=== PATIENT | female | born 1945 | race African-American/Black ===

== ENCOUNTER 2016-10-17 12:11 | Observation (INO) ==
--- NOTE | 2016-10-17 13:43 | Emergency Department Note ---
Arrival - Arrival Chief Complaint: Non-Specific Stated Complaint: sob, pain in legs and arm. ED Nursing Triage Note: C/O Having an asthma attack that started this am., states she is now cramping in her legs,thighs and hands., patient ambulated into triage without assistance, patient speaks with full sentences, states she has been wheezing earlier today Mode of Arrival: Ambulatory Limitations: No Limitations Source: Patient, Family (Daughter), RN Notes Reviewed Time Seen by Provider: 10/17/16 13:14 - History of Present Illness HPI Narrative: 71-year-old -Armenian female complains of generalized muscle cramps that started on today after taking nebulizer treatment. Reports fever (on last p.m.) , shortness of breath, chest pain with inspiration, palpitations, nausea, and epigastric pain that started today. Past medical history significant for asthma, COPD, type 2 diabetes, hypertension , anxiety and depression Medications: Advair, metformin, ProAir, Singulair, Spiriva, [place], losartan, omeprazole, theophylline Primary care provider Dr. Loera Allergies/Adverse Reactions: Allergies Allergy/AdvReac Type Severity Reaction Status Date / Time No Known Allergies Allergy Verified 10/17/16 12:30 Home Medications: Home Medications Medication Instructions Recorded Confirmed Type Albuterol Sulfate [Proair HFA] 1 puff INH QID 01/20/16 10/17/16 History Aspirin [Ecotrin] 81 mg PO DAILY 01/20/16 History Escitalopram [Lexapro] 20 mg PO DAILY 01/20/16 10/17/16 History Fluticasone 50 Mcg Nasal [place] 1 spray BOTH NARES TID 01/20/16 History [Flonase Nasal [place]] Fluticasone/Salmeterol 250-50 1 puff INH DAILY 01/20/16 10/17/16 History [Advair 250-50] HYDROcodone/ACETAMIN 10-325 [[place] 1 tablet PO Q6H 01/20/16 10/17/16 History 10-325] Losartan Potassium 100 mg PO DAILY 01/20/16 10/17/16 History Montelukast Tab [Singulair Tab] 10 mg PO DAILY 01/20/16 10/17/16 History Multivitamin [One Daily] 1 tablet PO DAILY 01/20/16 10/17/16 History Omeprazole 20 mg PO DAILY 01/20/16 10/17/16 History Theophylline Anhydrous [Theochron] 300 mg PO BID 01/20/16 10/17/16 History metFORMIN [Glucophage] 500 mg PO DAILY 01/20/16 10/17/16 History Insulin Detemir [Levemir FlexPen] 12 unit SUBCUT DAILY 10/17/16 History Tiotropium Inhalation [Spiriva 1 inhaler INH DAILY 10/17/16 10/17/16 History Handihaler] Tramadol HCl [Tramadol Tab] 50 mg PO BID PRN 10/17/16 10/17/16 History amLODIPine [Norvasc] 5 mg PO DAILY 10/17/16 10/17/16 History Review of System - Review of System 12 point system: reviewed and no additional remarkable complaints except as stated - Review of System Constitutional: Present: as per HPI, fever (Tactile last p.m.) Respiratory: Present: as per HPI, wheezing, other (Shortness of breath) Cardiovascular: Present: as per HPI, chest pain (With inspiration), palpitations Gastrointestinal: Present: as per HPI, abdominal pain (Epigastric), nausea. Absent: vomiting, diarrhea Musculoskeletal: Present: as per HPI, arm pain (Cramps), leg pain (Cramps) Neurological: Present: as per HPI, paresthesias (Bilateral upper and lower extremities) Medical,Surgical,& Family Hx - Medical History Cardio: History of: Hypertension Endocrine: History of: Diabetes Mellitus (NIDDM) Respiratory: History of: Asthma, COPD - Social History Smoking Status: Never smoker Frequency of Alcohol Use: Occasionally Type of Drug Use: None Exam Physical Examination: - General General appearance: alert, in no apparent distress - Head Head exam: Present: atraumatic, normocephalic, normal inspection - Eye Eye exam: Present: normal appearance - Neck Neck exam: Present: normal inspection Absent: tenderness, lymphadenopathy - Chest Chest inspection: Present: symmetric chest wall rise - Respiratory Respiratory exam: Present: Bilateral breath sounds diminished in bases - Cardiovascular Cardiovascular exam: Present: Tachycardia normal rhythm, normal heart sounds - Abdominal Exam Abdominal exam: Present: soft, normal bowel sounds. Absent: tenderness - Extremities Exam Extremities exam: Present: normal inspection, normal capillary refill absent: Tenderness to palpation Back Exam: Back Exam: Inspection normal - Neurological Exam Neurological exam: Present: alert, oriented person and place, CN II-XII intact, normal gait, motor sensory deficit, reflexes normal - Psychiatric Psychiatric exam: Present: normal affect, normal mood - Skin Skin exam: Present: warm, dry, intact Vital Signs: Vital Signs Temperature 98.0 F 10/17/16 12:55 Pulse Rate 98 H 10/17/16 16:25 Respiratory Rate 18 10/17/16 16:25 Blood Pressure 134/90 10/17/16 16:25 O2 Sat by Pulse Oximetry 96 10/17/16 12:27 Course - Reevaluation(s) Reevaluation #1: Patient is stable at this time. EKG shows tachycardia with runs of PVCs which makes it difficult to rule out any ST elevation at this time. Will give labetalol and follow-up with another EKG. Time: 14:10 Reevaluation #2: Dr. Dominguez hospitalist here to see patient. EKG shows sinus rhythm with PVCs. Patient is stable and comfortable at this time. Patient will be admitted to his services Time: 16:20 - Consultations Consultation #1: Shannon nurse practitioner with the hospitalist group notified and discussed case with her. Lab work essentially all normal. EKG shows sinus tachycardia with PVCs. Given patient history, age, and risk factors I believe that admission for observation is not unreasonable at this time. Time: 14:25 Results - Labs CBC & BMP: 10/17/16 13:52 10/17/16 13:52 Lab Results: I have reviewed the patients labs Labs: Laboratory Tests 10/17/16 10/17/16 13:52 13:52 Total Creatine Kinase 134 CK-MB (CK-2) 1.3 Troponin I 0.015 Total Protein 7.3 Albumin 4.4 Globulin 2.9 Albumin/Globulin Ratio 1.5 - EKG EKG results: interpreted by ERMD - Impressions Chest x-ray: Impression: Chronic lung changes. The right hilum has become more prominent over several years. You may wish to obtain a CT of the chest to exclude adenopathy in this location. - Diagnostic Findings Procedure: Chest x-ray: report reviewed by me Disposition Clinical Impression: Chest pain Case discussed with: patient, patient's family Disposition: Still a Patient Condition: Guarded
--- NOTE | 2016-10-17 14:02 | XRay Report ---
2 view chest. Indication: Shortness of breath. Comparison: December 09, 2015. The heart is enlarged. There is calcific plaque present within the aortic knob. There are extensive areas of abnormal stranding opacity and possible bullous disease present within the apices. There is persistent blunting of both costophrenic angles. The right hilum in particular is quite prominent but stable. Osseous structures are unremarkable. Impression: Chronic lung changes. The right hilum has become more prominent over several years. You may wish to obtain a CT of the chest to exclude adenopathy in this location. PROCEDURE INTERPRETED AT [facility] DEPARTMENT OF RADIOLOGY Final Report Signed by: Dr. Sofya Garcia
--- NOTE | 2016-10-17 14:03 | EKG Report ---
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
[2016-10-17 14:17] LABS: Basophils # 0.1 10*3/uL (0.0-0.2); Basophils % 0.7 % (0.0-0.8); Eosinophils # 0.2 10*3/uL (0.0-0.87); Eosinophils % 2.7 % (0.00-10.9); Hematocrit 42.6 VOL% (35.7-47.0); Hemoglobin 14.6 GM/DL (12.0-16.0); Immature Granulocytes % 0.3 %; Immature Granulocytes Absolute 0.03 #; Lymphocytes # 1.6 10*3/uL (1.4-4.0); Lymphocytes % 18.4 % (21.3-54.2); Mean Corpuscular HGB Conc 34.3 GM/DL (32-36); Mean Corpuscular Hemoglobin 31 PG (27-34); Mean Corpuscular Volume 90.4 FL (87-102); Mean Platelet Volume 11.1 FL (9.6-12.0); Monocytes # 0.7 10*3/uL (0.11-0.8); Monocytes % 8.6 % (1.7-12.7); Neutrophils % 69.3 % (38.7-73.9); Platelet Count 243 T/CUMM (130-400); Red Blood Count 4.71 MC/CUMM (3.8-5.5); Red Cell Distribution Width 14.1 % (9.3-17.3); White Blood Count 8.6 T/CUMM (4-12)
[2016-10-17] MEDS ORDERED: LABETALOL 20 MG/4 ML SYRINGE IV STA (14:22)
[2016-10-17 14:34] LABS: Albumin 4.4 G/DL (3.4-5.0); Calcium 10.2 MG/DL (8.5-10.1); Osmolality,Calculated 283.1 MOS/KG (273-304); Total Protein 7.3 G/DL (6.4-8.3)
[2016-10-17 14:35] LABS: Troponin I Only 0.015 NG/ML (0.00-0.045)
[2016-10-17] MEDS ORDERED: LABETALOL 100 MG/20 ML VIAL IV ONE (14:48)
--- NOTE | 2016-10-17 16:12 | Hospitalist History & Physical ---
Assessment and Plan (1) Asthma dependent on inhaled steroids Status: Acute Assessment and plan: The patient appears to have exacerbation of asthma. She will be treated with beta agonist nebulized breathing therapy, antibiotic, and steroid. Current Visit: Yes (2) Chronic pain of both knees Status: Acute Assessment and plan: The patient takes both [place] and tramadol for pain. I examined the prescription monitoring program and she receives her medicine from one physician and uses one pharmacy. She refills prescriptions on the of each month. Current Visit: Yes (3) Chest pain Status: Acute Assessment and plan: The patient has chest pain symptoms and abnormal EKG. We will obtain cardiology consultation and recheck cardiac enzymes, EKG, and chest x-ray in the morning. Current Visit: Yes Qualifiers: Chest pain type: pleurodynia Qualified Code(s): R07.81 - Pleurodynia History of Present Illness Chief complaint: Shortness of breath and chest discomfort History of present illness: Ms. Souza is a 71 year old female patient of Dr. Loera. The patient comes to the hospital today complaining of shortness of breath and wheezing. When taking beta agonist nebulizer therapy the patient has some palpitation and chest discomfort. EKG shows incomplete left bundle branch block. The patient' s symptom is moderate, continuous, and not improving. The patient's symptom is not associated with fever, chills, increased sputum production. The patient takes [place] and tramadol for pain. Home Medications Medication Instructions Recorded Confirmed Type Albuterol Sulfate [Proair HFA] 1 puff INH QID 01/20/16 10/17/16 History Aspirin [Ecotrin] 81 mg PO DAILY 01/20/16 History Escitalopram [Lexapro] 20 mg PO DAILY 01/20/16 10/17/16 History Fluticasone 50 Mcg Nasal [place] 1 spray BOTH NARES TID 01/20/16 History [Flonase Nasal [place]] Fluticasone/Salmeterol 250-50 1 puff INH DAILY 01/20/16 10/17/16 History [Advair 250-50] HYDROcodone/ACETAMIN 10-325 [[place] 1 tablet PO Q6H 01/20/16 10/17/16 History 10-325] Losartan Potassium 100 mg PO DAILY 01/20/16 10/17/16 History Montelukast Tab [Singulair Tab] 10 mg PO DAILY 01/20/16 10/17/16 History Multivitamin [One Daily] 1 tablet PO DAILY 01/20/16 10/17/16 History Omeprazole 20 mg PO DAILY 01/20/16 10/17/16 History Theophylline Anhydrous [Theochron] 300 mg PO BID 01/20/16 10/17/16 History metFORMIN [Glucophage] 500 mg PO DAILY 01/20/16 10/17/16 History Insulin Detemir [Levemir FlexPen] 12 unit SUBCUT DAILY 10/17/16 History Tiotropium Inhalation [Spiriva 1 inhaler INH DAILY 10/17/16 10/17/16 History Handihaler] Tramadol HCl [Tramadol Tab] 50 mg PO BID PRN 10/17/16 10/17/16 History amLODIPine [Norvasc] 5 mg PO DAILY 10/17/16 10/17/16 History Allergies Allergy/AdvReac Type Severity Reaction Status Date / Time No Known Allergies Allergy Verified 10/17/16 12:30 Medical,Surgical,& Family Hx - Medical History Cardio: History of: Hypertension Endocrine: History of: Diabetes Mellitus (NIDDM) Respiratory: History of: Asthma, COPD - Family History Family History: Reports;: Family Hypertension - Social History Smoking Status: Never smoker Frequency of Alcohol Use: Occasionally Type of Drug Use: None Marital Status: Lives With:: Alone Functional capacity: independent ambulation 12 point system: reviewed and no additional remarkable complaints except as stated Exam - Constitutional Vitals: Period Temp Pulse Resp BP Sys/Castillo Pulse Ox Last 24 Hr 98.0 F-98.0 F 102-102 20-20 144-144/92-92 96 Exam: Constitutional System: Mild distress on account of shortness of breath. No tremulousness. Head: Normocephalic, atraumatic. Ears, Nose and Throat System: No evidence of Otitis or Mastoiditis. No epistaxis or discharge Eyes System: Pupils equal, round, and reactive. Extraocular muscles intact. Neck: Supple, without adenopathy, No jugular venous distention. No thyromegaly , neck mass, or prior surgery apparent. Respiratory System: Chest moderate air trapping and moderate wheezing to auscultation. Cardiovascular System: Heart with regular rate and rhythm. No murmur. GI System: Abdomen soft, nontender. Normo active bowel sounds present. Musculoskeletal System: limbs with no pedal edema. Full distal pulses. Neurological System: No discernable sensory deficit. No aphasia Psychiatric System: Conversation is rational Results - Labs CBC & BMP: 10/17/16 13:52 10/17/16 13:52 Lab Results: I have reviewed the past 24 hour labs - EKG EKG results: sinus rhythm
[2016-10-17] MEDS ORDERED: traMADol 50 MG TABLET PO PRN (17:28)
[2016-10-17] MEDS ORDERED: ONDANSETRON 4 MG/2 ML VIAL IV PRN (17:28)
[2016-10-17] MEDS: LEVOFLOXACIN 500 MG TABLET PO SCH (18:58)
[2016-10-17] MEDS: methylPREDNISolone SOD SUC 40 MG/1 ML VIAL IV SCH (18:58)
[2016-10-17] MEDS: ENOXAPARIN 40 MG/0.4 ML SYRINGE SUBCUT SCH (18:58)
[2016-10-17] MEDS: SODIUM CHLORIDE 0.9% 1,000 ML IV SCH (19:04)
[2016-10-17] MEDS: ALBUTEROL/IPRATROPIUM 3 ML NEB RESP TX SCH (20:02)
[2016-10-17] MEDS: ALBUTEROL 2.5 MG/3 ML NEB RESP TX SCH (20:02)
[2016-10-17] MEDS: FLUTICASONE 50 MCG NASAL SPRAY 16 GM BOTTLE BOTH NARES SCH (21:14)
[2016-10-17] MEDS: THEOPHYLLINE ER 300 MG TABLET PO SCH (21:15)
[2016-10-18] MEDS: ALBUTEROL/IPRATROPIUM 3 ML NEB RESP TX SCH ×4 (01:15→20:05)
[2016-10-18 04:58] LABS: Basophils % 0.2 % (0.0-0.8); Hemoglobin 12.1 GM/DL (12.0-16.0); Immature Granulocytes % 0.4 %; Immature Granulocytes Absolute 0.02 #; Lymphocytes # 0.5 10*3/uL (1.4-4.0); Lymphocytes % 9.7 % (21.3-54.2); Mean Corpuscular HGB Conc 33.6 GM/DL (32-36); Mean Corpuscular Hemoglobin 31 PG (27-34); Mean Corpuscular Volume 90.9 FL (87-102); Mean Platelet Volume 11.8 FL (9.6-12.0); Monocytes # 0.1 10*3/uL (0.11-0.8); Monocytes % 1.6 % (1.7-12.7); Neutrophils # 4.4 10*3/uL (1.4-7.4); Neutrophils % 88.1 % (38.7-73.9); Platelet Count 222 T/CUMM (130-400); Red Blood Count 3.96 MC/CUMM (3.8-5.5); Red Cell Distribution Width 14.1 % (9.3-17.3)
[2016-10-18 05:20] LABS: Blood Urea Nitrogen 23 MG/DL (7-18); Calcium 9.9 MG/DL (8.5-10.1); Glucose 234 MG/DL (74-106); Magnesium 1.9 MG/DL (1.8-2.4); Osmolality,Calculated 288.5 MOS/KG (273-304); Sodium 139 MMOL/L (136-145); Troponin I Only < 0.015 NG/ML (0.00-0.045)
[2016-10-18] MEDS: methylPREDNISolone SOD SUC 40 MG/1 ML VIAL IV SCH ×2 (06:07→17:25)
--- NOTE | 2016-10-18 06:21 | Pain Management Consult Note ---
Assessment and Plan (1) Chronic pain of both knees Status: Acute Assessment and plan: continue current medications for pain , will obtain knee xrays Current Visit: Yes History of Present Illness Chief complaint: legs and knee pain History of present illness: Ms. Souza is a 71 year old female complaining of knee and leg pains and cramps, sees [facility] for norco as op Home Medications Medication Instructions Recorded Confirmed Type Albuterol Sulfate [Proair HFA] 1 puff INH QID 01/20/16 10/17/16 History Aspirin [Ecotrin] 81 mg PO DAILY 01/20/16 History Escitalopram [Lexapro] 20 mg PO DAILY 01/20/16 10/17/16 History Fluticasone 50 Mcg Nasal [place] 1 spray BOTH NARES TID 01/20/16 History [Flonase Nasal [place]] Fluticasone/Salmeterol 250-50 1 puff INH DAILY 01/20/16 10/17/16 History [Advair 250-50] HYDROcodone/ACETAMIN 10-325 [[place] 1 tablet PO Q6H 01/20/16 10/17/16 History 10-325] Losartan Potassium 100 mg PO DAILY 01/20/16 10/17/16 History Montelukast Tab [Singulair Tab] 10 mg PO DAILY 01/20/16 10/17/16 History Multivitamin [One Daily] 1 tablet PO DAILY 01/20/16 10/17/16 History Omeprazole 20 mg PO DAILY 01/20/16 10/17/16 History Theophylline Anhydrous [Theochron] 300 mg PO BID 01/20/16 10/17/16 History metFORMIN [Glucophage] 500 mg PO DAILY 01/20/16 10/17/16 History Insulin Detemir [Levemir FlexPen] 12 unit SUBCUT DAILY 10/17/16 History Tiotropium Inhalation [Spiriva 1 inhaler INH DAILY 10/17/16 10/17/16 History Handihaler] Tramadol HCl [Tramadol Tab] 50 mg PO BID PRN 10/17/16 10/17/16 History amLODIPine [Norvasc] 5 mg PO DAILY 10/17/16 10/17/16 History Allergies Allergy/AdvReac Type Severity Reaction Status Date / Time No Known Allergies Allergy Verified 10/17/16 12:30 Medical,Surgical,& Family Hx - Medical History Cardio: History of: Hypertension Neurology: History of: Migraine Endocrine: History of: Diabetes Mellitus (NIDDM) Respiratory: History of: Asthma, COPD Gastrointestinal: History of: GERD - Surgical History Abdominal Surgeries: Surgical HX of: EGD Reproductive Surgeries: Surgical HX of;: Gynecologic Surgery, Hysterectomy - Family History Family History: Reports;: Family Hypertension - Social History Smoking Status: Never smoker Frequency of Alcohol Use: Occasionally Type of Drug Use: None 12 point system: reviewed and no additional remarkable complaints except as stated - Constitutional Constitutional: Present: as per HPI - EENT Nose, mouth and throat: Present: as per HPI - Cardiovascular Cardiovascular: Present: dyspnea on exertion - Respiratory Respiratory: Present: dyspnea - Gastrointestinal Gastrointestinal: Present: as per HPI - Genitourinary Genitourinary: Present: as per HPI - Musculoskeletal Musculoskeletal: Present: abnormal gait, arthralgias, back pain, joint swelling , muscle cramps, muscle weakness - Neurological Neurological: Present: abnormal gait - Endocrine Endocrine: Present: fatigue Exam - Constitutional Vitals: Period Temp Pulse Resp BP Sys/[place] Pulse Ox Last 24 Hr 98.0 F-98.4 F 79-102 16-20 111-146/59-94 89-98 General appearance: mild distress - Head Head exam: Present: normal inspection - Eye Eye exam: Present: EOMI Pupils: Present: JIM - ENT ENT exam: Present: normal exam Ear exam: Present: intact Mouth exam: Present: normal external inspection - Neck Neck exam: Present: normal inspection - Respiratory Respiratory exam: Present: clear to auscultation bilaterally - Cardiovascular Cardiovascular exam: Present: RRR - GI/Abdominal GI/Abdominal exam: Present: normal bowel sounds - Extremities Exam Extremities exam: Present: other (bilateral knee tenderness) - Back Exam Back exam: Present: vertebral tenderness - Neurological Exam Neurological exam: Present: abnormal gait. Absent: altered - Skin Skin exam: Present: normal color Results - Labs CBC & BMP: 10/18/16 03:56 10/18/16 03:56 Lab Results: I have reviewed the past 24 hour labs
[2016-10-18] MEDS: SODIUM CHLORIDE 0.9% 1,000 ML IV SCH (07:07)
--- NOTE | 2016-10-18 07:55 | EKG Report ---
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
--- NOTE | 2016-10-18 08:30 | XRay Report ---
XR knee 2V BI Indication: Knee pain, osteoarthritis Comparison: None available Findings: No evidence of fracture seen. The alignment of the joints appears normal. Moderate medial compartment and mild to moderate remaining compartment degenerative change is present. Meniscal calcification is present more prominent in the lateral compartments. No soft tissue abnormality is seen. Impression: Knee osteoarthrosis as described above. PROCEDURE INTERPRETED AT [facility] DEPARTMENT OF RADIOLOGY Final Report Signed by: Dr. Casey Feliciano
--- NOTE | 2016-10-18 08:32 | XRay Report ---
XR chest 2V Indication: Dyspnea Comparison: 17 October 2016 Findings: The heart and mediastinum are normal in size and configuration. The pulmonary vascularity is normal in caliber. Lung volumes are increased with prominent bronchial markings. Pulmonary scarring is present more prominent in the upper lobes, similar to previous exam. No lung infiltrates, effusions, pneumothorax or other abnormality is demonstrated. Impression: Chronic lung changes. No acute process or significant change. PROCEDURE INTERPRETED AT [facility] DEPARTMENT OF RADIOLOGY Final Report Signed by: Dr. Casey Feliciano
[2016-10-18] MEDS: IPRATROPIUM 500 MCG/2.5 ML NEB RESP TX SCH ×4 (08:43→20:05)
[2016-10-18] MEDS: ALBUTEROL 2.5 MG/3 ML NEB RESP TX SCH ×4 (08:44→20:05)
--- NOTE | 2016-10-18 08:47 | EKG Report ---
Stationary ECG Study [facility] Test Date: 10/17/2016 4:16:26 PM Pat Name: JESUS LIN Department: Room: 283 Gender: F Billing Clerk: LUCILA : 1945 Requested by: Ashely Duncan Order Number: [id number] Reading MD: BARB BURDEN Intervals [place] Rate: 92 P: 86 [place]: 124 QRS: 106 QRSD: 158 T: -25 QT: 423 QTc: 472 Interpretive Statements SINUS RHYTHM WITH OCCASIONAL VENTRICULAR PREMATURE COMPLEXES POSSIBLE LEFT ATRIAL ENLARGEMENT MARKED RIGHT AXIS DEVIATION INTRAVENTRICULAR CONDUCTION DELAY Electronically Signed On 10-18-16 14:00:29 CDT by BARB BURDEN [id number]
[2016-10-18] MEDS: LOSARTAN 50 MG TABLET PO SCH (10:27)
[2016-10-18] MEDS: THEOPHYLLINE ER 300 MG TABLET PO SCH ×2 (10:28→21:09)
[2016-10-18] MEDS: ASPIRIN EC 81 MG TABLET PO SCH (10:28)
[2016-10-18] MEDS: amLODIPine 5 MG TABLET PO SCH (10:28)
[2016-10-18] MEDS: metFORMIN 500 MG TABLET PO SCH (10:28)
[2016-10-18] MEDS: LEVOFLOXACIN 500 MG TABLET PO SCH ×2 (10:29→19:23)
[2016-10-18] MEDS: ESCITALOPRAM 10 MG TABLET PO SCH (10:29)
[2016-10-18] MEDS: PANTOPRAZOLE 40 MG TABLET PO SCH (10:29)
[2016-10-18] MEDS: FLUTICASONE/SALMETEROL 250-50 DISKUS 14 DOSE INH SCH (10:35)
[2016-10-18] MEDS: FLUTICASONE 50 MCG NASAL SPRAY 16 GM BOTTLE BOTH NARES SCH ×3 (10:37→21:11)
--- NOTE | 2016-10-18 16:34 | Cardiology Consult Note ---
Josue Moreira Vanessa, RN, am scribing for, and in the presence of, Daryl Hairston MD 16 :28. Assessment and Plan - Time spent with patient Time spent with patient: Greater than 30 minutes (Due to assessment, planning, documentation, and medication review) (1) Chest pain Status: Acute Assessment and plan: 71 year old BF with PMHx HTN, DM, COPD, asthma, arthritis. Severe pulmonary HTN with PA pressure 76 mmHg. Chronic NICM and LBBB with most recent EF 20% now admitted with asthma exacerbation and chest discomfort. NYHA III. -CP, h/o Nonischemic cardiomyopathy and left bundle branch chronic, she had recently progressed CHF. Now has nocturnal dyspnea. Invasive evaluation was planned several months ago, but she did not show up. Discussed risks and benefits of management options. -Echo, stress test in a.m. -Continue ARB. -She has difficult to control asthma and was not on beta blockers. Uses inhalers frequently. His heart rate remains elevated, using a calcium channel katharine may be an option, although ejection fraction was severely depressed. -Severe pulmonary hypertension. Continue diuresis. 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 Current Visit: Yes Qualifiers: Chest pain type: pleurodynia Qualified Code(s): R07.81 - Pleurodynia (2) Chronic pain of both knees Status: Chronic Assessment and plan: SEE PLAN LISTED ABOVE. Current Visit: Yes (3) Nonischemic cardiomyopathy Status: Chronic Assessment and plan: SEE PLAN LISTED ABOVE. Current Visit: Yes (4) COPD (chronic obstructive pulmonary disease) Status: Chronic Assessment and plan: SEE PLAN LISTED ABOVE. Current Visit: Yes (5) GERD (gastroesophageal reflux disease) Status: Chronic Assessment and plan: SEE PLAN LISTED ABOVE. Current Visit: Yes (6) Hypertension Status: Chronic Assessment and plan: SEE PLAN LISTED ABOVE. Current Visit: Yes (7) Anxiety Status: Chronic Assessment and plan: SEE PLAN LISTED ABOVE. Current Visit: Yes (8) Asthma dependent on inhaled steroids Status: Chronic Assessment and plan: SEE PLAN LISTED ABOVE. Current Visit: Yes (9) Former tobacco use Status: Chronic Assessment and plan: SEE PLAN LISTED ABOVE. 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 MILLER Ms. Souza is a 71 year old black female with risk factors significant for: age , hypertension, diabetes, family history of premature CAD, and previous tobacco use. Past medical history includes COPD, asthma, arthritis. She also has a chronic left bundle branch block and known history of nonischemic cardiomyopathy with most recent EF 20% per echo December 2015. Left and right heart catheterization in July 2012 negative for significant coronary obstruction , severe pulmonary hypertension with evidence of biventricular failure, elevated right-sided filling pressures, and a NICM with EF 30%. Patient was experiencing no overt S/S of heart failure and has been medically optimized since that time. She was last seen by Dr. Miller in clinic in December 2015 after being referred by Dr. Arteaga for worsening shortness of breath with PND. Patient was set up for repeat diagnostic cardiac cath with probable AICD placement, but she did not present to hospital for procedure. Patient states, "I just got nervous and did not go." Patient presented to [facility] yesterday afternoon with complaints of shortness of breath and muscle cramping of legs, thighs, and right hand. She also reported having some chest pain on inspiration and had wheezing. Chest x- ray with chronic lung changes and right hilum becoming more prominent over the past several years. EKG with sinus tach at 102 bpm, LBBB. She did not have anginal complaint. She was admitted to [facility] telemetry for treatment of asthma exacerbation and evaluation of chest discomfort. Cardiology asked to see for chest discomfort. This morning, patient is awake and alert and is pleasant. Reports she feels much better today than she did yesterday. Patient' s daughter is present with her at bedside. Daughter reports that patient has been experiencing worsening in severity of shortness of breath since Monday morning, and patient has also PND which has worsened over the past couple months. She has also had worsening dyspnea on exertion. No further chest discomfort or pain this morning. Reports pain she experienced yesterday was under the left breast area and in epigastric area and described as a "pressure. " It waxed and waned throughout the day, and reports that discomfort was relieved by "pressing in" on the area. No radiation or associated dyspnea, diaphoresis, N/V, palpitations, presyncope. No recent cough, fever, chills. No signifcant LE edema, and patient reports she has occasional "light swelling" in her feet/ankles. Routinely uses 2 pillows to sleep at night and has not increased recently. Takes a routine PPI for reflux. No dysphagia or abdominal pain. No hemoptysis, hematuria, melena. BP 123/72. EKG and tele monitoring without acute ischemic finding. Serial cardiac biomarkers normal. Electrolytes within normal limit. Creatinine 1.1 (appears baseline). CC: Ashely Duncan MD - Home Medications and Allergies Home Medications: Home Medications Medication Instructions Recorded Confirmed Type Albuterol Sulfate [Proair HFA] 1 puff INH QID 01/20/16 10/17/16 History Aspirin [Ecotrin] 81 mg PO DAILY 01/20/16 History Escitalopram [Lexapro] 20 mg PO DAILY 01/20/16 10/17/16 History Fluticasone 50 Mcg Nasal [place] 1 spray BOTH NARES TID 01/20/16 History [Flonase Nasal [place]] Fluticasone/Salmeterol 250-50 1 puff INH DAILY 01/20/16 10/17/16 History [Advair 250-50] HYDROcodone/ACETAMIN 10-325 [[place] 1 tablet PO Q6H 01/20/16 10/17/16 History 10-325] Losartan Potassium 100 mg PO DAILY 01/20/16 10/17/16 History Montelukast Tab [Singulair Tab] 10 mg PO DAILY 01/20/16 10/17/16 History Multivitamin [One Daily] 1 tablet PO DAILY 01/20/16 10/17/16 History Omeprazole 20 mg PO DAILY 01/20/16 10/17/16 History Theophylline Anhydrous [Theochron] 300 mg PO BID 01/20/16 10/17/16 History metFORMIN [Glucophage] 500 mg PO DAILY 01/20/16 10/17/16 History Insulin Detemir [Levemir FlexPen] 12 unit SUBCUT DAILY 10/17/16 History Tiotropium Inhalation [Spiriva 1 inhaler INH DAILY 10/17/16 10/17/16 History Handihaler] Tramadol HCl [Tramadol Tab] 50 mg PO BID PRN 10/17/16 10/17/16 History amLODIPine [Norvasc] 5 mg PO DAILY 10/17/16 10/17/16 History Allergies/Adverse Reactions: Allergies Allergy/AdvReac Type Severity Reaction Status Date / Time No Known Allergies Allergy Verified 10/17/16 12:30 - Constitutional Constitutional: Present: fatigue. Absent: anorexia, chills - EENT Eyes: Absent: blurry vision Ears: Absent: decreased hearing Nose, mouth and throat: Absent: dysphagia, lip swelling, nasal congestion, neck pain, sinus pressure, sore throat, tongue swelling, vertigo - Cardiovascular Cardiovascular: Present: chest pain at rest, dyspnea, dyspnea on exertion, edema. Absent: chest pain with activity, radiating jaw, neck or arm pain, orthopnea (Trace) - Respiratory Respiratory: Present: dyspnea, wheezing, pain on inspiration. Absent: cough, hemoptysis, change in phlegm color - Gastrointestinal Gastrointestinal: Present: heartburn. Absent: abdominal pain, constipation, diarrhea, dysphagia, early satiety, hematemesis, hematochezia, melena, nausea, vomiting, jaundice - Genitourinary Genitourinary: Absent: dysuria, flank pain, hematuria - Musculoskeletal Musculoskeletal: Present: arthralgias, muscle cramps, myalgias - Neurological Neurological: Absent: abnormal gait, abnormal speech, confusion, dizziness, frequent falls, syncope, tremor(s) - Psychiatric Psychiatric: Present: anxiety. Absent: depression, panic attacks - Endocrine Endocrine: Present: cold intolerance, fatigue. Absent: heat intolerance - Hematologic/Lymphatic Hematologic/Lymphatic: Absent: easy bleeding, easy bruising Medical,Surgical,& Family Hx - Medical History Cardio: History of: CHF, Hypertension No history of: Cardiac Dysrhythmia, DE, Pacemaker, PVD, Valvular Heart Disease Psychological: History of: Anxiety Disorders Neurology: History of: Migraine Endocrine: History of: Diabetes Mellitus (NIDDM) No history of: Thyroid Disorder Respiratory: History of: Asthma, COPD, Pulmonary Hypertension No history of: Obstructive Sleep Apnea Genitourinary: No history of: Kidney Stones Gastrointestinal: History of: GERD No history of: Crohn's Disease, Gastrointestinal Bleed, Hematochezia, Hepatitis, Ulcerative Colitis Musculoskeletal: History of: Musculoskeletal Problems Hematology: No history of: Anemia, Blood Transfusion Reaction, Bleeding Problems, Clotting Problems Other: No history of: Cancer, HIV - Surgical History Cardiac Surgeries: Sugical HX of: Cardiac Catheterization Patient Denies: Cardiac Surgery, Carotid Endarterectomy, Internal Defibrillator Abdominal Surgeries: Surgical HX of: EGD Reproductive Surgeries: Surgical HX of;: Breast Surgery (Lumpectomy left breast) , Gynecologic Surgery, Hysterectomy Orthopedic Surgeries: Surgical HX of;: Orthopedic Surgery (Left knee arthroscopy ; meniscus removal) - Family History Family History: Reports;: Family Diabetes, Family Heart Disease (Father), Family Hypertension - Social History Smoking Status: Former smoker Frequency of Alcohol Use: Occasionally Type of Drug Use: None Marital Status: Lives With:: Alone Functional capacity: independent ambulation Physical Examination Vital Signs Temp Pulse Resp BP Pulse Ox 98.0 F 102 H 20 144/92 96 10/17/16 12:27 10/17/16 12:27 10/17/16 12:27 10/17/16 12:27 10/17/16 12:27 General: Present: Appears Well, No Apparent Distress HEENT: Present: Normocephaly Neck: Present: Supple Neck, No Bruit, Other (elev JVP) Cardiac: Present: Regular Rate, Systolic Murmur Lungs: Present: Decreased Breath Sounds, Wheezes, No Wheezes, No Rales, No Rhonchi Neuro: Present: Grossly Intact Abdomen: Present: Soft, Active Bowel Sounds Skin: Present: Clear. Absent: Suspicious Lesions Extremities: Present: No Clubbing, No Cyanosis, +1 Edema Result/EKG - Labs CBC & BMP: 10/18/16 03:56 10/18/16 03:56 Lab Results: I have reviewed the past 24 hour labs Labs: Laboratory Results - last 24 hr 10/17/16 10/17/16 10/17/16 13:52 13:52 13:52 WBC 8.6 RBC 4.71 Hgb 14.6 Hct 42.6 MCV 90.4 MCH 31 MCHC 34.3 RDW 14.1 Plt Count 243 MPV 11.1 Neut % (Auto) 69.3 Lymph % (Auto) 18.4 L [place] % (Auto) 8.6 Eos % (Auto) 2.7 Baso % (Auto) 0.7 Neut # (Auto) 6.0 Lymph # (Auto) 1.6 [place] # (Auto) 0.7 Eos # (Auto) 0.2 Baso # (Auto) 0.1 Immature Gran % 0.3 Nucleated RBC % 0.0 Immature Gran # 0.03 Nucleated RBCs # 0.00 Immature Plt Fraction 0.0 Sodium 142 Potassium 4.0 Chloride 105 Carbon Dioxide 28 Anion Gap 13.0 BUN 14 Creatinine 1.10 H GFR Calculation 62 BUN/Creatinine Ratio 12.00 Glucose 92 POC Glucose Calculated Osmolality 283.1 Calcium 10.2 H Magnesium Total Bilirubin 1.00 AST 19 ALT 23 Alkaline Phosphatase 87 Total Creatine Kinase 134 CK-MB (CK-2) 1.3 Troponin I 0.015 Total Protein 7.3 Albumin 4.4 Globulin 2.9 Albumin/Globulin Ratio 1.5 Theophylline 10/17/16 10/18/16 10/18/16 13:52 03:56 03:56 WBC 5.0 D RBC 3.96 Hgb 12.1 D Hct 36.0 MCV 90.9 MCH 31 MCHC 33.6 RDW 14.1 Plt Count 222 MPV 11.8 Neut % (Auto) 88.1 H Lymph % (Auto) 9.7 L [place] % (Auto) 1.6 L Eos % (Auto) 0.0 Baso % (Auto) 0.2 Neut # (Auto) 4.4 Lymph # (Auto) 0.5 L [place] # (Auto) 0.1 L Eos # (Auto) 0.0 Baso # (Auto) 0.0 Immature Gran % 0.4 Nucleated RBC % 0.0 Immature Gran # 0.02 Nucleated RBCs # 0.00 Immature Plt Fraction 0.0 Sodium 139 Potassium 4.0 Chloride 103 Carbon Dioxide 27 Anion Gap 13.0 BUN 23 H Creatinine 1.10 H GFR Calculation 62 BUN/Creatinine Ratio 20.00 Glucose 234 H POC Glucose Calculated Osmolality 288.5 Calcium 9.9 Magnesium 2.0 1.9 Total Bilirubin AST ALT Alkaline Phosphatase Total Creatine Kinase 88 D CK-MB (CK-2) Troponin I < 0.015 Total Protein Albumin Globulin Albumin/Globulin Ratio Theophylline 10/18/16 10/18/16 03:56 07:48 WBC RBC Hgb Hct MCV MCH MCHC RDW Plt Count MPV Neut % (Auto) Lymph % (Auto) [place] % (Auto) Eos % (Auto) Baso % (Auto) Neut # (Auto) Lymph # (Auto) [place] # (Auto) Eos # (Auto) Baso # (Auto) Immature Gran % Nucleated RBC % Immature Gran # Nucleated RBCs # Immature Plt Fraction Sodium Potassium Chloride Carbon Dioxide Anion Gap BUN Creatinine GFR Calculation BUN/Creatinine Ratio Glucose POC Glucose 205 H Calculated Osmolality Calcium Magnesium Total Bilirubin AST ALT Alkaline Phosphatase Total Creatine Kinase CK-MB (CK-2) Troponin I Total Protein Albumin Globulin Albumin/Globulin Ratio Theophylline 16.1 - Diagnostic Findings Procedure: Chest x-ray: report reviewed by me, image reviewed by me - EKG EKG results: interpreted by me, no acute changes EKG shows: sinus rhythm Specialty Discharge - Follow Up or Referrals Follow up with: Alexis Wylie MD [Physician] - (11/30 @ 115) Marika Moreira Attila, MD, personally performed the services described in this documentation, ascribed by Sapna Salas RN in my presence, and it is both accurate and complete 634 .
--- NOTE | 2016-10-18 16:51 | Hospitalist Progress Note ---
Assessment and Plan (1) Asthma dependent on inhaled steroids Status: Chronic Assessment and plan: continue steroids, antibiotics, nebs, O2. Her asthma flare is improving. To have stress test in am per Dr Hairston. Current Visit: Yes (2) Chronic pain of both knees Status: Chronic Current Visit: Yes (3) Nonischemic cardiomyopathy Status: Chronic Current Visit: Yes (4) Hypertension Status: Chronic Current Visit: Yes Hospitalist: Subjective Interval history: Mrs Souza is feeling much better today and would like to go home. I saw her this morning and she agreed to wait until assessed by Dr Hairston. He has seen her and plans stress test in am. No chest pain. Breathing more comfortably with nebs, steroids. Exam - Constitutional Vitals: Period Temp Pulse Resp BP Sys/[place]illo Pulse Ox Last 24 Hr 98.0 F-98.8 F 71-93 16-20 111-146/59-94 89-99 General appearance: no acute distress, over weight - Head Head exam: Present: normocephalic, atraumatic - Eye Eye exam: Present: EOMI. Absent: scleral icterus - Respiratory Respiratory exam: Present: clear to auscultation bilaterally. Absent: wheezes - Cardiovascular Cardiovascular exam: Present: regular rate and rhythm - GI/Abdominal GI/Abdominal exam: Present: normal bowel sounds, soft. Absent: tenderness - Extremities Exam Extremities exam: Absent: edema Results - Labs CBC & BMP: 10/18/16 03:56 10/18/16 03:56 Lab Results: I have reviewed the past 24 hour labs Specialty Discharge - Follow Up or Referrals Follow up with: Alexis Wylie MD [Physician] - (11/30 @ 115)
[2016-10-18] MEDS: ENOXAPARIN 40 MG/0.4 ML SYRINGE SUBCUT SCH (17:24)
[2016-10-18] MEDS: FUROSEMIDE 40 MG/4 ML VIAL IV SCH (17:25)
--- NOTE | 2016-10-18 18:02 | ECHO Report ---
Mendez Souza Exam Date: 10/18/2016 16:23 Referring Physician: Technologist: Sary Haney RDCS Age: 71 Ht (in): 65 Wt (lb): 162 Gender: F Exam [facility]: [facility] Echo Indications: Chest pain, unspecified, Essential (primary) hypertension, NIDDM, GERD, Cardiomyopathy, unspecified, Asthma, Dyspnea, unspecified, Left bundle-branch block, unspecified, COPD BP: 136 / 78 HR: 75 Rhythm: Sinus Technical Quality: IMPRESSIONS Mildly dilated left ventricle, with severe global hypokinesis, with abnormal septal motion. Estimated left ventricular ejection fraction 20%. No hypertrophy. Mild right atrial and moderate left atrial dilatation. Moderate eccentric mitral regurgitation. Mild aortic valve sclerosis, without stenosis or insufficiency. Moderate pulmonary hypertension, with moderate tricuspid regurgitation. MEASUREMENTS (Male / Female) Normal Values 2D ECHO LV Diastolic Diameter PLAX 5.9 cm 4.2 - 5.9 / 3.9 - 5.3 cm LV Systolic Diameter PLAX 5.3 cm LV Fractional Shortening PLAX 9.8 % IVS Diastolic Thickness 0.9 cm 0.6 - 1.0 / 0.6 - 0.9 cm LVPW Diastolic Thickness 0.9 cm 0.6 - 1.0 / 0.6 - 0.9 cm RV Internal Dim ED PLAX 3.9 cm Aortic Root Diameter 2.8 cm LA Systolic Diameter LX 3.7 cm 3.0 - 4.0 / 2.7 - 3.8 cm DOPPLER TR Peak Velocity 392.0 cm/s TR Peak Gradient 61.5 mmHg FINDINGS Left Ventricle Mildly dilated left ventricle, with severe global hypokinesis, with abnormal septal motion. Estimated left ventricular ejection fraction 20%. No hypertrophy. Right Ventricle The right ventricle is normal in size and function. Right Atrium The right atrium is mildly enlarged. Left Atrium The left atrium is moderately enlarged. Mitral Valve Morphologically normal mitral valve. Moderate eccentric mitral regurgitation. Aortic Valve Mildly sclerotic aortic valve, without significant stenosis or insufficiency. Tricuspid Valve Morphologically normal tricuspid valve. Moderate tricuspid valve regurgitation. Tricuspid regurgitation velocities suggest a PAP of 61 mmHg plus right atrial pressure. Pulmonic Valve Morphologically normal pulmonic valve. Trace pulmonary valve regurgitation. Pericardium Normal pericardium without effusion. Aorta Normal ascending aorta dimension. Daryl Hairston (Electronically Signed) Final Date: 18 October 2016 18:01
[2016-10-19] MEDS: ALBUTEROL/IPRATROPIUM 3 ML NEB RESP TX SCH ×6 (01:07→20:29)
--- NOTE | 2016-10-19 05:47 | Pain Management Progress Note ---
Assessment and Plan (1) Chronic pain of both knees Status: Chronic Assessment and plan: continue current medications for pain , will obtain knee xrays 10/19 I will make her a follow-up appointment with me in pain clinic and she can be discharged home per primary Current Visit: Yes Pain - Subjective Interval history: The patient is feeling much better is wanted to go home this morning. Patient is scheduled for a treadmill test this morning. X-rays of the knee show significant osteoarthritis changes. I will make her a follow-up appointment with me in pain clinic next week and I can possibly inject the knees at that time Exam - Constitutional Vitals: Period Temp Pulse Resp BP Sys/[place] Pulse Ox Last 24 Hr 97.1 F-99.4 F 58-104 16-20 122-138/60-78 89-100 General appearance: normal weight - Head Head exam: Present: normal inspection - Eye Eye exam: Present: EOMI Pupils: Present: JIM - ENT ENT exam: Present: normal exam Ear exam: Present: intact Mouth exam: Present: normal external inspection - Neck Neck exam: Present: normal inspection - Respiratory Respiratory exam: Present: clear to auscultation bilaterally - Cardiovascular Cardiovascular exam: Present: RRR - GI/Abdominal GI/Abdominal exam: Present: normal bowel sounds - Extremities Exam Extremities exam: Present: other (Both knees are tender) - Back Exam Back exam: Present: vertebral tenderness - Neurological Exam Neurological exam: Present: abnormal gait - Skin Skin exam: Present: normal color Results - Labs CBC & BMP: 10/18/16 03:56 10/18/16 03:56 Lab Results: I have reviewed the past 24 hour labs Specialty Discharge - Follow Up or Referrals Follow up with: Alexis Wylie MD [Physician] - (11/30 @ 115)
[2016-10-19] MEDS: methylPREDNISolone SOD SUC 40 MG/1 ML VIAL IV SCH ×2 (07:24→19:14)
[2016-10-19] MEDS: ALBUTEROL 2.5 MG/3 ML NEB RESP TX SCH (07:26)
[2016-10-19] MEDS: IPRATROPIUM 500 MCG/2.5 ML NEB RESP TX SCH (07:26)
[2016-10-19] MEDS: ESCITALOPRAM 10 MG TABLET PO SCH (09:59)
[2016-10-19] MEDS: ASPIRIN EC 81 MG TABLET PO SCH (10:00)
[2016-10-19] MEDS: PANTOPRAZOLE 40 MG TABLET PO SCH (10:00)
[2016-10-19] MEDS: THEOPHYLLINE ER 300 MG TABLET PO SCH ×2 (10:01→22:07)
[2016-10-19] MEDS: LOSARTAN 50 MG TABLET PO SCH (10:01)
[2016-10-19] MEDS: metFORMIN 500 MG TABLET PO SCH (10:01)
[2016-10-19] MEDS: FLUTICASONE 50 MCG NASAL SPRAY 16 GM BOTTLE BOTH NARES SCH ×3 (10:02→22:07)
[2016-10-19] MEDS: amLODIPine 5 MG TABLET PO SCH (10:02)
[2016-10-19] MEDS: FLUTICASONE/SALMETEROL 250-50 DISKUS 14 DOSE INH SCH (10:03)
[2016-10-19] MEDS: FUROSEMIDE 40 MG/4 ML VIAL IV SCH ×2 (10:04→16:12)
--- NOTE | 2016-10-19 10:43 | Discharge Summary ---
Hospital Course - Hospital Course Hospital Course: Mrs Souza presented with shortness of breath and asthma exacerbation. She was treated with steroids and antibiotics and nebs and her wheezing resolved. She was also found to have a previoiusly unknown cardiomyopathy. She was seen by Dr Hairston who ordered a stress test that had minimal abnormality which was followed by [facility] that showed clear coronaries. She has been diuresed and is feeling good and ready to go home. She will follow up with DR Miller and with her PCP DR Loera, her pain doctor Dr Coelho, and Dr Wylie. She will be on lasix. - Time spent with patient Time with patient DS: Greater than 30 minutes (discharge planning, care coordination, documentation, medicine reconciliation took 38 minutes.) Diagnosis - Discharge Diagnosis (1) Asthma dependent on inhaled steroids Status: Chronic (2) Chronic pain of both knees Status: Chronic (3) Nonischemic cardiomyopathy Status: Chronic (4) Hypertension Status: Chronic Specialty Discharge - Follow Up or Referrals Follow up with: Kimberli Coelho MD [Physician] - 10/28/16 7:45 am Alexis Wylie MD [Physician] - 11/30/16 1:15 pm (wed 11/30 @ 115) Ben Loera MD [Physician] - 10/28/16 11:15 am Abel Miller MD [Physician] - 11/18/16 9:15 am ([facility] ) Discharge Plan - Discharge Data Disposition: Disch To Home/Self Care Condition at Discharge: Stable Discharge Diet: heart healthy Activity: resume usual activities as tolerated - Discharge Medications New Fluticasone 50 Mcg Nasal [place] [Flonase Nasal [place]] 1 spray BOTH NARES TID spray Furosemide Tab [Lasix Tab] 40 mg PO BID DIURETIC #60 tablet predniSONE TAB [PredniSONE] 10 mg PO DAILY #20 tablet Potassium Chloride 20 meq PO BID #60 tablet.er Continue metFORMIN [Glucophage] 500 mg PO DAILY Theophylline Anhydrous [Theochron] 300 mg PO BID Omeprazole 20 mg PO DAILY Multivitamin [One Daily] 1 tablet PO DAILY Montelukast Tab [Singulair Tab] 10 mg PO DAILY Losartan Potassium 100 mg PO DAILY HYDROcodone/ACETAMIN 10-325 [[place] 10-325] 1 tablet PO Q6H Fluticasone/Salmeterol 250-50 [Advair 250-50] 1 puff INH DAILY Escitalopram [Lexapro] 20 mg PO DAILY Aspirin [Ecotrin] 81 mg PO DAILY Albuterol Sulfate [Proair HFA] 1 puff INH QID Tramadol HCl [Tramadol Tab] 50 mg PO BID PRN PRN Reason: Pain Tiotropium Inhalation [Spiriva Handihaler] 1 inhaler INH DAILY amLODIPine [Norvasc] 5 mg PO DAILY - Follow Up or Referral Follow Up: Kimberli Coelho MD [Physician] - 10/28/16 7:45 am Alexis Wylie MD [Physician] - 11/30/16 1:15 pm (11/30 @ 115) Ben Loera MD [Physician] - 10/28/16 11:15 am Abel Miller MD [Physician] - 11/18/16 9:15 am ([facility] ) - Forms/Instructions Instructions: Left Heart Catheterization (DC), Heart Healthy Diet (GEN) Exam - Constitutional Vitals: Period Temp Pulse Resp BP Sys/[place] Pulse Ox Last 24 Hr 97.1 F-99.4 F 58-104 16-20 112-138/60-78 89-100 General appearance: normal weight, no acute distress - Eye Eye exam: Present: EOMI. Absent: scleral icterus - Respiratory Respiratory exam: Present: clear to auscultation bilaterally. Absent: rales, wheezes - Cardiovascular Cardiovascular exam: Present: regular rate and rhythm - GI/Abdominal GI/Abdominal exam: Present: normal bowel sounds, soft. Absent: tenderness - Extremities Exam Extremities exam: Absent: edema Discharge Results Procedures and tests throughout hospitalization: Pending Orders 10/19/16 04:00 NM kashmir perf SPECT rest or str IN AM Labs on day of discharge: Labs from last 24 hours 10/19/16 10/18/16 07:43 19:03 POC Glucose 128 H 201 H DS: Provider Date of admission: 10/17/16 15:42 Primary care physician: . No PCP Attending physician on admission: Sanchez Dominguez MD Consults: 10/17/16 17:28 Consult to Physician [CONS] Routine Comment: chest pain Consulting Provider: Daryl Hairston Consult to Physician [CONS] Routine Comment: painful legs Consulting Provider: Kimberli Coelho Discharging clinician: Ashely Duncan MD
--- NOTE | 2016-10-19 10:46 | Event Note ---
Patient underwent Cardiolite stress testing this morning without complaints of chest pain, heaviness or tightness. No obvious ST changes noted, occasional unifocal PVC. Poor exercise tolerance. Reached target heart rate within approximately 90 seconds but continued to walk for a total of 3-1/2 minutes at a slower rate. Moderate dyspnea on exertion. Blood pressure responded appropriately. She is now being transitioned to nuclear medicine for final scan. Dr. Hairston to read, interpreted and advise.
[2016-10-19] MEDS ORDERED: MAGNESIUM SULF RIDER 2 GM in PREMIX 1 EACH IV PRN (15:17)
--- NOTE | 2016-10-19 15:45 | Nuclear Medicine Report ---
EXERCISE STRESS TEST Test interpreted and dictated by Dr. Daryl Hairston. INDICATION: CHF, left bundle branch block, history of cardiomyopathy. PROCEDURE: At rest, 10 mCi of 99-Technetium labeled Sestamibi was injected and rest images were obtained. The patient then exercised according to the Sanchez treadmill stress protocol. At peak stress, 30 mCi of 99-Technetium labeled Sestamibi was injected and post stress images were obtained. FINDINGS: At rest, heart rate 87 beats per minute, blood pressure 134/90, left bundle branch block with PVCs. The patient exercised for 1 minute and 58 seconds, achieving the peak stress of 3.2 METS, achieving a peak heart rate of 150 beats per minute, 100% of maximum, age predicted heart rate. The blood pressure did not change. Left bundle branch block, with frequent PVCs were noted. The test was stopped due to achieving the peak target heart rate, dyspnea on exertion and fatigue. There was no chest pain. Rest and post stress , gated and perfusion images were reviewed. The left ventricle is severely dilated, the end-diastolic volume is 224 cc, the end-systolic volume is 175 cc, and the calculated ejection fraction is 72%. The anteroseptal region is akinetic, the remaining segments are hypokinetic. There is a large area in the anterior/apical region of severely decreased activity at rest, which becomes moderately photopenic post stress. In addition, there is an area of moderately decreased activity in the basal anteroseptal segments, which does not change post stress. In addition, there is also an area of moderately decreased activity in the inferior/apical segments, which remains moderately photopenic post stress. This is consistent with old myocardial disease. Specificity is limited due to underlying left bundle branch block. CONCLUSIONS: 1. CLINICALLY NEGATIVE, ELECTRICALLY NONDIAGNOSTIC MAXIMUM TREADMILL STRESS TEST. POOR EXERCISE TOLERANCE. 2. SEVERELY DILATED LEFT VENTRICLE, WITH SEVERE SYSTOLIC DYSFUNCTION. EVIDENCE OF OLD MYOCARDIAL DISEASE WITHOUT REVERSIBLE ISCHEMIA, IN MULTIPLE AREAS, DESCRIBED ABOVE. SPECIFICITY IS LIMITED DUE TO UNDERLYING LEFT BUNDLE BRANCH BLOCK. 3. THIS IS A HIGH RISK STRESS FOR FUTURE CARDIOVASCULAR EVENTS. Procedure performed and interpreted at [facility] Department of Radiology. CC: VIVIAN
--- NOTE | 2016-10-19 16:28 | Cardiology Progress Note ---
Josue Moreira Vanessa, RN, am scribing for, and in the presence of, Daryl Hairston MD 16 :28. Assessment and Plan - Time spent with patient Time spent with patient: Greater than 30 minutes (1) Chest pain Status: Acute Assessment and plan: 71 year old BF with PMHx HTN, DM, COPD, asthma, arthritis. Severe pulmonary HTN with PA pressure 76 mmHg. Chronic NICM and LBBB with most recent EF 20% now admitted with asthma exacerbation and chest discomfort. -CP, h/o Nonischemic cardiomyopathy and left bundle branch chronic, she had recently progressed CHF. Now has nocturnal dyspnea. Invasive evaluation was planned several months ago, but she did not show up. Stress test today showed severe cardiomyopathy, with areas suggestive of old myocardial disease, with some focal findings that could represent either ischemia or just artifact due to left bundle branch block. We discussed risks and benefits of management options, we will obtain interventional consult and she may need to proceed with a right plus left heart catheterization. Mod PHTN 61 -If there is no reversible etiology for CMP, she is a candidate for DYSLEXIA TEACHER. This can be pursued as an outpatient -Continue ARB. -She has difficult to control asthma and was not on beta blockers. Uses inhalers frequently. His heart rate remains elevated, using a calcium channel katharine may be an option, although ejection fraction was severely depressed. -PHTN. Continue diuresis. She is feeling better -She is a candidate for DYSLEXIA TEACHER-D. Current Visit: Yes Qualifiers: Chest pain type: pleurodynia Qualified Code(s): R07.81 - Pleurodynia (2) Chronic pain of both knees Status: Chronic Assessment and plan: SEE PLAN LISTED ABOVE. Current Visit: Yes (3) Nonischemic cardiomyopathy Status: Chronic Assessment and plan: SEE PLAN LISTED ABOVE. Current Visit: Yes (4) COPD (chronic obstructive pulmonary disease) Status: Chronic Assessment and plan: SEE PLAN LISTED ABOVE. Current Visit: Yes (5) GERD (gastroesophageal reflux disease) Status: Chronic Assessment and plan: SEE PLAN LISTED ABOVE. Current Visit: Yes (6) Hypertension Status: Chronic Assessment and plan: SEE PLAN LISTED ABOVE. Current Visit: Yes (7) Anxiety Status: Chronic Assessment and plan: SEE PLAN LISTED ABOVE. Current Visit: Yes (8) Asthma dependent on inhaled steroids Status: Chronic Assessment and plan: SEE PLAN LISTED ABOVE. Current Visit: Yes (9) Former tobacco use Status: Chronic Assessment and plan: SEE PLAN LISTED ABOVE. Current Visit: Yes Cardiology - PN: Subj Interval history: PRIMARY MANAGED CARE MANAGER: DR. MILLER SUMMARY: Ms. Souza is a 71 year old black female with risk factors significant for: age , hypertension, diabetes, family history of premature CAD, and previous tobacco use. Past medical history includes COPD, asthma, arthritis. She also has a chronic left bundle branch block and known history of nonischemic cardiomyopathy with most recent EF 20% per echo December 2015. Left and right heart catheterization in July 2012 negative for significant coronary obstruction , severe pulmonary hypertension with evidence of biventricular failure, elevated right-sided filling pressures, and a NICM with EF 30%. Patient was experiencing no overt S/S of heart failure and has been medically optimized since that time. She was last seen by Dr. Miller in clinic in December 2015 after being referred by Dr. Arteaga for worsening shortness of breath with PND. Patient was set up for repeat diagnostic cardiac cath with probable AICD placement, but she did not present to hospital for procedure. Patient states, "I just got nervous and did not go." Patient admitted to [facility] after presenting to [facility] ED on 10/17 with shortness of breath, chest pain on inspiration with wheezing, and muscle cramping of extremities. She is being treated also for asthma exacerbation. Patient has had worsening dyspnea on exertion. Cardiology asked to see for chest discomfort. EKG and cardiac biomarkers have been negative for acute ischemic finding. October: Ms. Benítez is pleasant this morning. She reports she is feeling better today. She has not had any further chest pain since yesterday. BP stable. Cardiac monitoring reveals SR with LBBB, occ PVC. She underwent Cardiolite stress testing this morning, and had no chest pain, heaviness, tightness, or obvious ST changes noted. She did have some moderate exertional dyspnea. Final results of scan pending. Exam (Progress Note) - Constitutional Vitals: Period Temp Pulse Resp BP Sys/Castillo Pulse Ox Last 24 Hr 97.1 F-99.4 F 58-104 16-20 112-138/60-78 89-100 Exam: General: Present: Appears Well, No Apparent Distress HEENT: Present: Normocephaly Neck: Present: Supple Neck, No Bruit, Other (elev JVP) Cardiac: Present: Regular Rate, Systolic Murmur Lungs: Present: Decreased Breath Sounds, Wheezes, No Wheezes, No Rales, No Rhonchi Neuro: Present: Grossly Intact Abdomen: Present: Soft, Active Bowel Sounds Skin: Present: Clear. Absent: Suspicious Lesions Extremities: Present: No Clubbing, No Cyanosis, +1 Edema Result/EKG - Labs CBC & BMP: 10/18/16 03:56 10/18/16 03:56 Lab Results: I have reviewed the past 24 hour labs Labs: Laboratory Results - last 24 hr 10/18/16 10/19/16 19:03 07:43 POC Glucose 201 H 128 H - EKG EKG results: interpreted by me, no acute changes EKG shows: sinus rhythm (LBBB, occasional PVC) Specialty Discharge - Follow Up or Referrals Follow up with: Alexis Wylie MD [Physician] - (11/30 @ 115) IMarkia Attila, MD, personally performed the services described in this documentation, ascribed by Sapna Salas RN in my presence, and it is both accurate and complete 628 .
[2016-10-19] MEDS: LEVOFLOXACIN 500 MG TABLET PO SCH (18:30)
--- NOTE | 2016-10-19 19:05 | Event Note ---
Interventional cardiology consult Chief complaint: Cardiomyopathy with shortness of breath and some chest pain. 71-year-old female who has had chest pain with an ejection fraction of 20% and a left bundle branch block. The patient had cardiac stress test was abnormal with significant risk of a cardiac event. The patient's had a lot of symptomatology is not progress. We are asked to evaluate the patient for ischemic heart disease as etiology of her symptomatology including chest pain and cardiomyopathy. I have discussed the patient's situation and her history with her reviewed the indications for cardiac catheterization as well as how the procedure be carried out and the risk. I reviewed with her and her daughter this in detail and answered the questions. I discussed cardiac catheterization and percutaneous coronary intervention with the patient and available family. I reviewed with them the indications for the procedure and the basis of how the procedure would be carried out. I also reviewed with them the risk of the procedure which include but not necessarily limited to access site bleeding, bruising, pain, swelling or vascular injury that may require emergency vascular surgery, blood transfusion, or thrombin injection. Also discussed the possibility of stroke, myocardial infarction, arrhythmia which may require electrocardioversion, and the possibility of dye reaction that would require medical therapy. Also discussed the possibility of coronary artery injury, ruptured, closure or perforation that may require emergency bypass surgery. We also discussed the possibility of from a major complication. Their questions answered. They voice understanding and agree to proceed. We will plan on proceeding tomorrow. Review of systems: On the face associated with history of present illness fairly unremarkable. Exam: General appearance: Slightly overweight female no distress. HEENT: Atraumatic normocephalic. Neck: Trachea is midline supple without JVD or bruits. Lungs: Clear anterior and posterior without rales rhonchi or wheezes. Cardiovascular: Regular rate and rhythm with a soft systolic murmur. Abdomen: Soft nontender. Chest wall: Nontender. Extremities: Trace pretibial edema. No deformities. Neurologic: Alert cooperative without gross focal deficits. Psychiatric: Cognitive function is grossly intact. Skin: Unremarkable. Impression 1. Chest pain with abnormal stress test possible ischemic heart disease. 2. Cardiomyopathy possible idiopathic possible ischemic based on studies. 3. Hypertension. 4. Risk factors for coronary disease. Plan 1. Left heart catheterization possible percutaneous coronary mentioned May described above discussed. 2. Further recommendations based on her findings. Appreciate the opportunity see Ms. Saira aguilar sinus toward the patient think
[2016-10-19] MEDS: ENOXAPARIN 40 MG/0.4 ML SYRINGE SUBCUT SCH (22:07)
[2016-10-20] MEDS: ALBUTEROL/IPRATROPIUM 3 ML NEB RESP TX SCH ×4 (00:30→21:03)
[2016-10-20 05:28] LABS: Basophils % 0.3 % (0.0-0.8); Eosinophils % 0.1 % (0.00-10.9); Hemoglobin 12.7 GM/DL (12.0-16.0); Immature Granulocytes % 0.9 %; Immature Granulocytes Absolute 0.09 #; Lymphocytes # 1.8 10*3/uL (1.4-4.0); Lymphocytes % 17.4 % (21.3-54.2); Mean Corpuscular HGB Conc 34.3 GM/DL (32-36); Mean Corpuscular Hemoglobin 31 PG (27-34); Mean Corpuscular Volume 90.2 FL (87-102); Mean Platelet Volume 11.4 FL (9.6-12.0); Monocytes # 0.8 10*3/uL (0.11-0.8); Monocytes % 7.5 % (1.7-12.7); Neutrophils # 7.7 10*3/uL (1.4-7.4); Neutrophils % 73.8 % (38.7-73.9); Platelet Count 237 T/CUMM (130-400); Red Cell Distribution Width 14.3 % (9.3-17.3); White Blood Count 10.4 T/CUMM (4-12)
--- NOTE | 2016-10-20 05:38 | Pain Management Progress Note ---
Assessment and Plan (1) Chronic pain of both knees Status: Chronic Assessment and plan: continue current medications for pain , will obtain knee xrays 10/19 I will make her a follow-up appointment with me in pain clinic and she can be discharged home per primary 10/20 continue current plan of pain management Current Visit: Yes Pain - Subjective Interval history: scheduled for cardiac catherization this am. knee pain seems to be adequately controlled. Exam - Constitutional Vitals: Period Temp Pulse Resp BP Sys/Castillo Pulse Ox Last 24 Hr 97.1 F-98.1 F 83-102 15-18 112-131/58-84 91-100 General appearance: no acute distress - Head Head exam: Present: normal inspection - Eye Eye exam: Present: EOMI Pupils: Present: JIM - ENT ENT exam: Present: normal exam Ear exam: Present: intact Mouth exam: Present: normal external inspection - Neck Neck exam: Present: normal inspection - Respiratory Respiratory exam: Present: clear to auscultation bilaterally - Cardiovascular Cardiovascular exam: Present: RRR - GI/Abdominal GI/Abdominal exam: Present: normal bowel sounds - Extremities Exam Extremities exam: Present: other (bilateral knee tenderness) - Back Exam Back exam: Present: normal inspection - Neurological Exam Neurological exam: Present: abnormal gait - Skin Skin exam: Present: normal color Results - Labs CBC & BMP: 10/20/16 04:19 10/18/16 03:56 Lab Results: I have reviewed the past 24 hour labs Specialty Discharge - Follow Up or Referrals Follow up with: Alexis Wylie MD [Physician] - (11/30 @ 115)
[2016-10-20] MEDS: methylPREDNISolone SOD SUC 40 MG/1 ML VIAL IV SCH ×2 (05:48→17:09)
[2016-10-20 05:53] LABS: Calcium 9.9 MG/DL (8.5-10.1); Magnesium 1.9 MG/DL (1.8-2.4); Osmolality,Calculated 288.1 MOS/KG (273-304); Potassium 3.2 MMOL/L (3.5-5.1)
[2016-10-20 05:58] LABS: INR 1.1; PT Patient Result 11.5 SECS
[2016-10-20] MEDS ORDERED: diphenhydrAMINE CAP 25 MG CAPSULE PO ONE (06:00)
[2016-10-20] MEDS ORDERED: DIAZEPAM 5 MG TABLET PO ONE (06:00)
--- NOTE | 2016-10-20 07:07 | Event Note ---
Patient is generally stable this morning. She is for left heart catheterization today. I discussed this again with the patient reviewing the case procedure how would be carried out the risk. She voices understanding and agrees to proceed.
--- NOTE | 2016-10-20 07:10 | History and Physical Update ---
Sedation H&P Update - History and Physical H&P was reviewed, the patient examined and there: are no changes in the patients condition since last H&P was completed. - Dictation Physical: refer to H&P completed by admitting physician - Physical Exam Mental Status: alert and oriented Heart: regular rate and rhythm Lung: clear to auscultation Abdomen: within normal limits Vitals: within normal limits History and Physical Changes: None - Sedation Plan for Sedation: moderate Patient Consent: Procedure disscussed with patient and patinet has consented., Risks and benefits were discussed with patient,including infection,, bleeding, injury to surrounding structures, seizure, temporary nerve, Patient understands and accepts potential risks/benefits and agrees to, proceed. ASA Class: III Airway Assessment: Class III: Soft palate, base of uvula visible
--- NOTE | 2016-10-20 07:42 | EKG Report ---
Stationary ECG Study [facility] Test Date: 10/20/2016 7:40:22 AM Pat Name: JESUS LIN Department: Room: 283 Gender: F Can Sorter: TEVIN : 1945 Requested by: Sofya Ruffin Order Number: [id number] Reading MD: DAXA NICHOLSON Intervals [place] Rate: 92 P: 80 GA: 144 QRS: 72 QRSD: 163 T: 0 QT: 405 QTc: 454 Interpretive Statements SINUS RHYTHM WITH OCCASIONAL VENTRICULAR PREMATURE COMPLEXES POSSIBLE RIGHT ATRIAL ENLARGEMENT POSSIBLE LEFT ATRIAL ENLARGEMENT LEFT BUNDLE BRANCH BLOCK Electronically Signed On 10-20-16 12:29:03 CDT by DAXA NICHOLSON [email or web address]
[2016-10-20] MEDS: POTASSIUM CHLORIDE RIDER 10 MEQ in PREMIX 1 EACH IV PRN ×2 (08:28→14:39)
[2016-10-20] MEDS: LOSARTAN 50 MG TABLET PO SCH (09:42)
[2016-10-20] MEDS: FLUTICASONE/SALMETEROL 250-50 DISKUS 14 DOSE INH SCH (09:42)
[2016-10-20] MEDS: FLUTICASONE 50 MCG NASAL SPRAY 16 GM BOTTLE BOTH NARES SCH ×3 (09:42→21:05)
[2016-10-20] MEDS: ASPIRIN EC 81 MG TABLET PO SCH (09:43)
[2016-10-20] MEDS: ESCITALOPRAM 10 MG TABLET PO SCH (09:43)
[2016-10-20] MEDS: THEOPHYLLINE ER 300 MG TABLET PO SCH ×2 (09:43→21:05)
[2016-10-20] MEDS: PANTOPRAZOLE 40 MG TABLET PO SCH (09:43)
[2016-10-20] MEDS: amLODIPine 5 MG TABLET PO SCH (09:43)
[2016-10-20] MEDS ORDERED: SODIUM CHLORIDE 0.9% 1,000 ML IV SCH (10:30)
[2016-10-20] MEDS ORDERED: SODIUM CHLORIDE 0.45% 1,000 ML IV SCH (11:00)
[2016-10-20] MEDS ORDERED: fentaNYL 100 MCG/2 ML VIAL ONE (11:04)
[2016-10-20] MEDS ORDERED: MIDAZOLAM 2 MG/2 ML VIAL ONE (11:04)
[2016-10-20] MEDS ORDERED: LIDOCAINE 1% 20 ML VIAL ONE (11:04)
[2016-10-20] MEDS ORDERED: NITROGLYCERIN DRIP 50 MG/250 ML BOTTLE IV ONE (11:04)
[2016-10-20] MEDS ORDERED: VERAPAMIL 5 MG/2 ML VIAL ONE (11:05)
[2016-10-20] MEDS ORDERED: ENOXAPARIN 30 MG/0.3 ML SYRINGE ONE (11:30)
--- NOTE | 2016-10-20 11:50 | Operative Note ---
Date of procedure: 10/20/16 Procedure Preformed: Left heart catheterization from right radial approach. Surgeon / Physician: Jose Villalobos Plant Maintenance Engineer: Julisa Denson Post-op diagnosis: same Findings: Severe left ventricular cardiomyopathy with widely patent coronary arteries. Specimens: none sent Estimated blood loss: minimal Condition: stable Anesthesia: local, conscious sedation Disposition: floor
[2016-10-20] MEDS: FUROSEMIDE 40 MG/4 ML VIAL IV SCH ×2 (12:27→17:08)
--- NOTE | 2016-10-20 16:23 | Event Note ---
The patient's right wrist is stable. As noted the patient's LV function was severely diminished but coronary arteries are widely patent. She had no evidence for ischemic heart disease. Her cardiomyopathy is probably idiopathic. From the heart Standpoint she could be discharged. I do not think today though the [place] assessment that she has a ride. Hopefully she will be discharged tomorrow.
--- NOTE | 2016-10-20 16:25 | Hospitalist Progress Note ---
Assessment and Plan (1) Asthma dependent on inhaled steroids Status: Chronic Assessment and plan: continue steroids, antibiotics, nebs, O2. Her asthma flare is improving. Replace potassium. Dr Hairston changing to oral lasix. Her cath looked ok after abnormal stress test. Her cardiomyopathy is nonischemic. Current Visit: Yes (2) Chronic pain of both knees Status: Chronic Current Visit: Yes (3) Nonischemic cardiomyopathy Status: Chronic Current Visit: Yes (4) Hypertension Status: Chronic Current Visit: Yes Hospitalist: Subjective Interval history: Mrs Souza had heart cath today that looked ok. She feels good. She will go home tomorrow after a night on oral lasix. Exam - Constitutional Vitals: Period Temp Pulse Resp BP Sys/Castillo Pulse Ox Last 24 Hr 97.1 F-98.1 F 72-101 16-20 116-137/58-85 91-100 General appearance: no acute distress, over weight - Eye Eye exam: Present: EOMI. Absent: scleral icterus - Respiratory Respiratory exam: Present: clear to auscultation bilaterally - Cardiovascular Cardiovascular exam: Present: regular rate and rhythm - GI/Abdominal GI/Abdominal exam: Present: normal bowel sounds, soft. Absent: tenderness - Extremities Exam Extremities exam: Absent: edema Results - Labs CBC & BMP: 10/20/16 04:19 10/20/16 04:18 Lab Results: I have reviewed the past 24 hour labs Quality Measures - VTE Contraindication to Pharmacological VTE Prophylaxis: High Risk of Bleeding Specialty Discharge - Follow Up or Referrals Follow up with: Alexis Wylie MD [Physician] - 11/30/16 1:15 pm (11/30 @ 115)
[2016-10-20] MEDS: LEVOFLOXACIN 500 MG TABLET PO SCH (16:59)
--- NOTE | 2016-10-20 19:10 | Cardiac Catheterization ---
Date of Procedure:: 10/20/16 Pre-op Diagnosis: Abnormal stress test with possible ischemia and cardiomyopathy. Post-op diagnosis: same Procedure: LEFT HEART CATHETERIZATION History: 71-year-old female with cardiomyopathy and abnormal cardiac perfusion study consistent with ischemic heart disease. Pre-Op diagnosis: Cardiomyopathy possible ischemia with abnormal stress test. Postoperative diagnosis: Cardiomyopathy with normal coronary arteries. Procedures: 1. Left heart catheterization. 2. Left ventricular angiogram. 3. Selective left and right coronary angiograms. Equipment: Terumo 6 Icelandic radial glide arterial sheath, Terumo 6 Icelandic radial TIG 4.0 diagnostic. Pigtail catheter for left ventricular angiogram. Medium TR band. Medications: Preoperative Benadryl and Valium given by mouth. Lidocaine 1% local anesthesia 1 mls administered by myself. Intraprocedure patient received Versed 2 mgs IVP, fentanyl 100 mcgs IVP, Verapamil 5 mg/NTG 200 mcg in 5 ml NS; Lovenox 30 mgs IVP. Complications: None immediate. Contrast: Visipaque 76 milliliters. Description of procedure: After informed consent the patient was given preoperative medications and brought to the catheterization laboratory where their right groin and right anterior wrist and forearm was prepped and draped in usual fashion. IV sedation was then obtained after which local anesthesia with lidocaine was administered over the right radial artery. Using the double wall needle the radial artery was cannulated. Microguidewire was advanced through the cannula into the radial artery. We exchanged for the radial artery sheath that was advanced over the microguidewire. Guidewire was removed. The diagnostic 6 Icelandic TIG 4.0 catheter was advanced and used to cross the aortic valve and left ventricular pressures were measured with LVEDP with pullback pressures were then measured in the aortic root. This same catheter was then used to cannulate the left and then right coronary arteries of which angiograms were obtained of each of these vessels in multiple projections. The angiograms were then reviewed. This catheter was then exchanged over guidewire for a pigtail catheter where this was used to cross the aortic valve and left ventricular entry obtain a right oblique view. The pigtail catheter was then removed over the guidewire. The TR band was then placed in the usual fashion and hemostasis obtained. Hemodynamic data: LV 121/29 , EDP 27; AO root 120/76, mean 86. Left ventricular angiogram: Left ventricle is dilated with possible left ventricular hypertrophy with global hypokinesis and ejection fraction of 20-25%. Left main coronary artery angiogram: Left main coronary is short and quickly bifurcates LAD and circumflex arteries. There certainly is no stenosis in the left main coronary. Left anterior descending artery angiogram: The LAD is a medium caliber vessel proximally somewhat smaller than the circumflex artery. It does extend down to the posterior apex where it bifurcates and cause a larger myocardium. Diagonal branch is a medium caliber. There is no stenosis or other disease in the LAD proper branches. Circumflex artery angiogram: Circumflex artery is large vessel and dominant. The first obtuse marginal branch is a medium large size vessel with a medium caliber second obtuse marginal branch and third obtuse marginal branch. These branches are all long cover the large area of myocardium. Distally circumflex artery gives rise to was a short PDA and posterior ventricular branches and AV node artery. There is no stenosis or disease in the circumflex artery proper or branches. Right coronary artery angiogram: RCA is a somewhat small nondominant vessel without stenosis. Impression: 1. Left ventricle is mildly dilated with global hypokinesis and ejection fraction of 20-25%. 2. LVEDP is moderately dilated 27 mmHg. 3. There is no gradient across the aortic valve. 4. There is no significant mitral valve regurgitation demonstrated. 5. Right coronary artery is nondominant small without stenosis or disease. 6. Left coronary system is large and dominant and is without stenosis or disease. Discussion: March the patient post catheterization. Certainly we did not find disease to account for her cardiomyopathy. Further risk factor modification treatment will be carried out discussed with patient. Implants: See above Surgeon / Physician: Jose Villalobos Estimated blood loss: minimal Specimens: none sent Condition: stable Disposition: floor - Medications / Follow-up Referrals: Alexis Wylie MD [Physician] - 11/30/16 1:15 pm (11/30 @ 115)
--- NOTE | 2016-10-20 19:19 | Event Note ---
71 year old BF with PMHx HTN, DM, COPD, asthma, arthritis. Severe pulmonary HTN with PA pressure 76 mmHg. Chronic NICM and LBBB with most recent EF 20% now admitted with asthma exacerbation and chest discomfort. 10/20. [facility] confirmed severe nonischemic cardiomyopathy. -Continue ARB. -She has difficult to control asthma and was not on beta blockers. Uses inhalers frequently. -PHTN. Continue diuresis. May switch to p.o. tomorrow -She is a candidate for AUTOMOTIVE PARTS MANAGER-D. If stable, can go home tomorrow, follow up with Dr. Miller.
[2016-10-21] MEDS: ALBUTEROL/IPRATROPIUM 3 ML NEB RESP TX SCH ×3 (01:05→13:05)
[2016-10-21] MEDS: methylPREDNISolone SOD SUC 40 MG/1 ML VIAL IV SCH (06:11)
--- NOTE | 2016-10-21 06:59 | Pain Management Progress Note ---
Assessment and Plan (1) Chronic pain of both knees Status: Chronic Assessment and plan: continue current medications for pain , will obtain knee xrays 10/19 I will make her a follow-up appointment with me in pain clinic and she can be discharged home per primary 10/20 continue current plan of pain management 10/21 keep op appt with me Current Visit: Yes Pain - Subjective Interval history: stable after cardiac catherization and likely being discharged today. she will follow up with me as op Exam - Constitutional Vitals: Period Temp Pulse Resp BP Sys/Castillo Pulse Ox Last 24 Hr 97.0 F-98.5 F 72-99 16-20 103-137/57-85 92-99 General appearance: normal weight - Head Head exam: Present: normal inspection - Eye Eye exam: Present: EOMI Pupils: Present: JIM - ENT ENT exam: Present: normal exam Mouth exam: Present: normal external inspection - Neck Neck exam: Present: normal inspection - Respiratory Respiratory exam: Present: clear to auscultation bilaterally - GI/Abdominal GI/Abdominal exam: Present: normal bowel sounds - Extremities Exam Extremities exam: Present: other (knees are tender) - Back Exam Back exam: Present: normal inspection - Neurological Exam Neurological exam: Present: alert, oriented X3 - Skin Skin exam: Present: normal color Results - Labs CBC & BMP: 10/20/16 04:19 10/20/16 04:18 Lab Results: I have reviewed the past 24 hour labs Quality Measures - VTE Contraindication to Pharmacological VTE Prophylaxis: High Risk of Bleeding Specialty Discharge - Follow Up or Referrals Follow up with: Alexis Wylie MD [Physician] - 11/30/16 1:15 pm (11/30 @ 115)
[2016-10-21 08:18] VITALS: BP 153/74
[2016-10-21] MEDS: LOSARTAN 50 MG TABLET PO SCH (08:33)
[2016-10-21] MEDS: ASPIRIN EC 81 MG TABLET PO SCH (08:33)
[2016-10-21] MEDS: THEOPHYLLINE ER 300 MG TABLET PO SCH (08:39)
[2016-10-21] MEDS: PANTOPRAZOLE 40 MG TABLET PO SCH (08:39)
[2016-10-21] MEDS: ESCITALOPRAM 10 MG TABLET PO SCH (08:39)
[2016-10-21] MEDS: amLODIPine 5 MG TABLET PO SCH (08:39)
[2016-10-21] MEDS: FLUTICASONE 50 MCG NASAL SPRAY 16 GM BOTTLE BOTH NARES SCH (08:40)
[2016-10-21] MEDS: FUROSEMIDE 40 MG/4 ML VIAL IV SCH (08:40)
== END 2016-10-21 12:19 | disposition home or self-care (01) ==
LOC: N.EDINP 12:11 → N.ED 12:11 → SUATTDRO 15:42 → N.EDINP 17:15 → N.TELEN 17:27
PROVIDERS: ADMIT Internal Medicine; ATTEND Internal Medicine
PROC: CLCCHCL (ICD-10-PCS; 2016-10-20 13:15)

== ENCOUNTER 2017-04-17 13:42 | Inpatient (IN) ==
[2017-04-17] MEDS ORDERED: ALBUTEROL NEB SOLN 5 MG/ML 20 ML/BOTTLE CONT NEB STA (15:14)
[2017-04-17] MEDS ORDERED: methylPREDNISolone SOD SUC 125 MG/2 ML VIAL IV STA (15:15)
[2017-04-17 15:29] LABS: Basophils % 0.2 % (0.0-0.8); Hematocrit 45.1 VOL% (35.7-47.0); Hemoglobin 14.9 GM/DL (12.0-16.0); Immature Granulocytes % 0.6 %; Immature Granulocytes Absolute 0.03 #; Lymphocytes # 1.3 10*3/uL (1.4-4.0); Lymphocytes % 26.1 % (21.3-54.2); Mean Corpuscular Hemoglobin 30 PG (27-34); Mean Platelet Volume 11.2 FL (9.6-12.0); Monocytes # 0.3 10*3/uL (0.11-0.8); Monocytes % 5.6 % (1.7-12.7); Neutrophils # 3.3 10*3/uL (1.4-7.4); Neutrophils % 67.5 % (38.7-73.9); Platelet Count 142 T/CUMM (130-400); Red Cell Distribution Width 14.4 % (9.3-17.3); White Blood Count 4.8 T/CUMM (4-12)
[2017-04-17] MEDS ORDERED: methylPREDNISolone SOD SUC 125 MG/2 ML VIAL ONE (15:37)
[2017-04-17 15:49] LABS: INR 1.1; PT Patient Result 11.6 SECS
[2017-04-17 16:05] LABS: Alanine Aminotransferase 56 U/L (13-56); Albumin 3.6 G/DL (3.4-5.0); Alkaline Phosphatase 84 U/L (45-117); Aspartate Amino Transferase 28 U/L (0-37); Blood Urea Nitrogen 11 MG/DL (7-18); Calcium 9.3 MG/DL (8.5-10.1); Glucose 165 MG/DL (74-106); Osmolality,Calculated 290.7 MOS/KG (273-304); Potassium 4.6 MMOL/L (3.5-5.1); Sodium 145 MMOL/L (136-145); Total Protein 6.4 G/DL (6.4-8.3); Troponin I Only 0.017 NG/ML (0.00-0.045)
[2017-04-17] MEDS ORDERED: FUROSEMIDE 40 MG/4 ML VIAL IV STA (16:36)
[2017-04-17] MEDS ORDERED: FUROSEMIDE 40 MG/4 ML VIAL ONE (16:42)
[2017-04-17] MEDS ORDERED: ONDANSETRON 4 MG/2 ML VIAL IV PRN (17:34)
[2017-04-17] MEDS ORDERED: ALBUTEROL/IPRATROPIUM 3 ML NEB RESP TX SCH (18:00)
[2017-04-17 18:52] LABS: Lymphocytes 24 % (20-55); Platelet Estimate Normal; Segmented Neutrophils 69 % (50-85); Total Cells Counted 100
[2017-04-17] MEDS: ALBUTEROL/IPRATROPIUM 3 ML NEB RESP TX SCH ×2 (20:56→23:25)
[2017-04-18] MEDS: ACETAMINOPHEN 325 MG TABLET PO PRN ×3 (00:11→18:40)
[2017-04-18] MEDS: ALBUTEROL/IPRATROPIUM 3 ML NEB RESP TX SCH ×6 (03:45→23:46)
[2017-04-18] MEDS: methylPREDNISolone SOD SUC 40 MG/1 ML VIAL IV SCH ×2 (06:24→17:11)
[2017-04-18 06:39] LABS: Hematocrit 40.4 VOL% (35.7-47.0); Hemoglobin 13.4 GM/DL (12.0-16.0); Immature Granulocytes % 0.4 %; Immature Granulocytes Absolute 0.01 #; Lymphocytes # 0.7 10*3/uL (1.4-4.0); Mean Corpuscular HGB Conc 33.2 GM/DL (32-36); Mean Corpuscular Hemoglobin 30 PG (27-34); Mean Corpuscular Volume 89.6 FL (87-102); Mean Platelet Volume 10.4 FL (9.6-12.0); Monocytes # 0.2 10*3/uL (0.11-0.8); Monocytes % 7.4 % (1.7-12.7); Neutrophils # 1.5 10*3/uL (1.4-7.4); Neutrophils % 63.2 % (38.7-73.9); Platelet Count 151 T/CUMM (130-400); Red Blood Count 4.51 MC/CUMM (3.8-5.5); Red Cell Distribution Width 14.3 % (9.3-17.3); White Blood Count 2.3 T/CUMM (4-12)
[2017-04-18 07:05] LABS: Hypochromasia 2+; Lymphocytes 36 % (20-55); Microcytosis 1+; Platelet Estimate Adequate; Segmented Neutrophils 62 % (50-85); Total Cells Counted 100
[2017-04-18 07:06] LABS: Calcium 9.1 MG/DL (8.5-10.1); Osmolality,Calculated 289.8 MOS/KG (273-304); Potassium 3.1 MMOL/L (3.5-5.1)
[2017-04-18] MEDS: POTASSIUM CHLORIDE 20 MEQ TABLET PO SCH (09:45)
[2017-04-18] MEDS: PANTOPRAZOLE 40 MG VIAL IV SCH (09:45)
[2017-04-18] MEDS: FUROSEMIDE 40 MG/4 ML VIAL IV SCH ×2 (10:15→17:07)
[2017-04-18] MEDS ORDERED: POTASSIUM CHLORIDE 20 MEQ TABLET PO ONE ×2 (10:23→21:00)
[2017-04-18] MEDS ORDERED: traMADol 50 MG TABLET PO PRN (10:29)
[2017-04-18] MEDS ORDERED: LORATADINE 10 MG TABLET PO PRN (10:29)
[2017-04-18] MEDS: THEOPHYLLINE ER 300 MG TABLET PO SCH (17:11)
[2017-04-18] MEDS: MONTELUKAST 10 MG TABLET PO SCH (21:09)
[2017-04-18] MEDS ORDERED: CYCLOBENZAPRINE 10 MG TABLET PO ONE (21:40)
[2017-04-18] MEDS: FLUTICASONE/SALMETEROL 250-50 DISKUS 14 DOSE INH SCH (22:02)
[2017-04-19] MEDS: ALBUTEROL/IPRATROPIUM 3 ML NEB RESP TX SCH ×4 (02:21→20:05)
[2017-04-19 06:55] LABS: Calcium 9.5 MG/DL (8.5-10.1)
[2017-04-19] MEDS: methylPREDNISolone SOD SUC 40 MG/1 ML VIAL IV SCH ×2 (06:56→17:25)
[2017-04-19] MEDS ORDERED: NALDEMEDINE TOSYLATE 0.2 MG PO SCH (09:00)
[2017-04-19] MEDS ORDERED: FLUTICASONE 50 MCG NASAL SPRAY 16 GM BOTTLE BOTH NARES SCH (09:00)
[2017-04-19] MEDS: PANTOPRAZOLE 40 MG VIAL IV SCH (09:04)
[2017-04-19] MEDS: FUROSEMIDE 40 MG/4 ML VIAL IV SCH ×2 (09:04→17:25)
[2017-04-19] MEDS: INSULIN GLARGINE 100 UNIT/ML SUBCUT SCH (09:04)
[2017-04-19] MEDS: FAMOTIDINE 20 MG TABLET PO SCH (09:05)
[2017-04-19] MEDS: ESCITALOPRAM 10 MG TABLET PO SCH (09:05)
[2017-04-19] MEDS: NEBIVOLOL 5 MG TABLET PO SCH (09:05)
[2017-04-19] MEDS: THEOPHYLLINE ER 300 MG TABLET PO SCH ×2 (09:05→17:25)
[2017-04-19] MEDS: AZITHROMYCIN 250 MG TABLET PO SCH (09:05)
[2017-04-19] MEDS: ASPIRIN EC 81 MG TABLET PO SCH (09:06)
[2017-04-19] MEDS: POTASSIUM CHLORIDE 20 MEQ TABLET PO SCH (09:06)
[2017-04-19] MEDS: FLUTICASONE/SALMETEROL 250-50 DISKUS 14 DOSE INH SCH ×2 (09:08→21:40)
[2017-04-19] MEDS: GLIMEPIRIDE 2 MG TABLET PO SCH (09:08)
[2017-04-19] MEDS ORDERED: ALBUTEROL/IPRATROPIUM 3 ML NEB RESP TX PRN (10:47)
[2017-04-19] MEDS ORDERED: IPRATROPIUM 500 MCG/2.5 ML NEB RESP TX SCH (11:00)
[2017-04-19] MEDS ORDERED: DEXTROSE 50% 25 GM/50 ML VIAL IV PRN (11:27)
[2017-04-19] MEDS ORDERED: GLUCAGON 1 MG VIAL IM PRN (11:27)
[2017-04-19] MEDS: ENOXAPARIN 40 MG/0.4 ML SYRINGE SUBCUT SCH (12:24)
[2017-04-19] MEDS: INSULIN LISPRO 100 UNIT/ML SUBCUT SCH ×3 (12:24→21:38)
[2017-04-19] MEDS: ATORVASTATIN 20 MG TABLET PO SCH (21:38)
[2017-04-19] MEDS: LISINOPRIL 5 MG TABLET PO SCH (21:38)
[2017-04-19] MEDS: MONTELUKAST 10 MG TABLET PO SCH (21:38)
[2017-04-20] MEDS: ALBUTEROL/IPRATROPIUM 3 ML NEB RESP TX SCH ×4 (00:34→20:21)
[2017-04-20] MEDS: methylPREDNISolone SOD SUC 40 MG/1 ML VIAL IV SCH ×2 (05:59→17:35)
[2017-04-20 06:32] LABS: Basophils % 0.1 % (0.0-0.8); Hematocrit 45.1 VOL% (35.7-47.0); Hemoglobin 15.1 GM/DL (12.0-16.0); Immature Granulocytes % 0.8 %; Immature Granulocytes Absolute 0.08 #; Lymphocytes # 1.2 10*3/uL (1.4-4.0); Lymphocytes % 11.6 % (21.3-54.2); Mean Corpuscular HGB Conc 33.5 GM/DL (32-36); Mean Corpuscular Hemoglobin 30 PG (27-34); Mean Platelet Volume 11.2 FL (9.6-12.0); Monocytes # 0.6 10*3/uL (0.11-0.8); Monocytes % 6.1 % (1.7-12.7); Neutrophils # 8.3 10*3/uL (1.4-7.4); Neutrophils % 81.4 % (38.7-73.9); Platelet Count 234 T/CUMM (130-400); Red Blood Count 5.07 MC/CUMM (3.8-5.5); Red Cell Distribution Width 14.5 % (9.3-17.3); White Blood Count 10.2 T/CUMM (4-12)
[2017-04-20 06:55] LABS: Calcium 9.8 MG/DL (8.5-10.1); Osmolality,Calculated 285.1 MOS/KG (273-304); Potassium 3.7 MMOL/L (3.5-5.1)
[2017-04-20 07:13] LABS: Risk Ratio 2.45; VLDL CHOLESTEROL 14.8 MG/DL
[2017-04-20] MEDS: INSULIN LISPRO 100 UNIT/ML SUBCUT SCH ×4 (09:15→22:15)
[2017-04-20] MEDS: INSULIN GLARGINE 100 UNIT/ML SUBCUT SCH (09:18)
[2017-04-20] MEDS: AZITHROMYCIN 250 MG TABLET PO SCH (09:18)
[2017-04-20] MEDS: FUROSEMIDE 40 MG/4 ML VIAL IV SCH (09:18)
[2017-04-20] MEDS: POTASSIUM CHLORIDE 20 MEQ TABLET PO SCH (09:18)
[2017-04-20] MEDS: GLIMEPIRIDE 2 MG TABLET PO SCH (09:18)
[2017-04-20] MEDS: FAMOTIDINE 20 MG TABLET PO SCH (09:18)
[2017-04-20] MEDS: THEOPHYLLINE ER 300 MG TABLET PO SCH ×2 (09:18→17:35)
[2017-04-20] MEDS: ASPIRIN EC 81 MG TABLET PO SCH (09:18)
[2017-04-20] MEDS: NEBIVOLOL 5 MG TABLET PO SCH (09:19)
[2017-04-20] MEDS: ESCITALOPRAM 10 MG TABLET PO SCH (09:19)
[2017-04-20] MEDS: LISINOPRIL 5 MG TABLET PO SCH ×2 (09:19→22:18)
[2017-04-20] MEDS: FLUTICASONE/SALMETEROL 250-50 DISKUS 14 DOSE INH SCH ×2 (09:21→22:16)
[2017-04-20] MEDS: ENOXAPARIN 40 MG/0.4 ML SYRINGE SUBCUT SCH (11:53)
[2017-04-20] MEDS: FUROSEMIDE 40 MG TABLET PO SCH (17:35)
[2017-04-20] MEDS: MONTELUKAST 10 MG TABLET PO SCH (22:15)
[2017-04-20] MEDS: ATORVASTATIN 20 MG TABLET PO SCH (22:15)
[2017-04-21] MEDS: ALBUTEROL/IPRATROPIUM 3 ML NEB RESP TX SCH ×2 (00:35→07:56)
[2017-04-21 06:05] LABS: Basophils % 0.2 % (0.0-0.8); Hematocrit 45.2 VOL% (35.7-47.0); Hemoglobin 15.7 GM/DL (12.0-16.0); Immature Granulocytes % 0.9 %; Immature Granulocytes Absolute 0.08 #; Lymphocytes # 1.6 10*3/uL (1.4-4.0); Lymphocytes % 17.1 % (21.3-54.2); Mean Corpuscular HGB Conc 34.7 GM/DL (32-36); Mean Corpuscular Hemoglobin 30 PG (27-34); Mean Corpuscular Volume 87.4 FL (87-102); Mean Platelet Volume 10.4 FL (9.6-12.0); Monocytes # 0.7 10*3/uL (0.11-0.8); Monocytes % 7.8 % (1.7-12.7); Neutrophils # 6.9 10*3/uL (1.4-7.4); Platelet Count 277 T/CUMM (130-400); Red Blood Count 5.17 MC/CUMM (3.8-5.5); Red Cell Distribution Width 14.4 % (9.3-17.3); White Blood Count 9.3 T/CUMM (4-12)
[2017-04-21] MEDS: methylPREDNISolone SOD SUC 40 MG/1 ML VIAL IV SCH (06:15)
[2017-04-21 06:28] LABS: Calcium 9.6 MG/DL (8.5-10.1); Osmolality,Calculated 286.1 MOS/KG (273-304); Potassium 3.9 MMOL/L (3.5-5.1)
[2017-04-21] MEDS: INSULIN LISPRO 100 UNIT/ML SUBCUT SCH (10:04)
[2017-04-21] MEDS: AZITHROMYCIN 250 MG TABLET PO SCH (10:05)
[2017-04-21] MEDS: LISINOPRIL 5 MG TABLET PO SCH (10:05)
[2017-04-21] MEDS: THEOPHYLLINE ER 300 MG TABLET PO SCH (10:05)
[2017-04-21] MEDS: ASPIRIN EC 81 MG TABLET PO SCH (10:05)
[2017-04-21] MEDS: FAMOTIDINE 20 MG TABLET PO SCH (10:05)
[2017-04-21] MEDS: ESCITALOPRAM 10 MG TABLET PO SCH (10:05)
[2017-04-21] MEDS: GLIMEPIRIDE 2 MG TABLET PO SCH (10:06)
[2017-04-21] MEDS: POTASSIUM CHLORIDE 20 MEQ TABLET PO SCH (10:06)
[2017-04-21] MEDS: NEBIVOLOL 5 MG TABLET PO SCH (10:06)
[2017-04-21] MEDS: FUROSEMIDE 40 MG TABLET PO SCH (10:06)
[2017-04-21] MEDS: INSULIN GLARGINE 100 UNIT/ML SUBCUT SCH (10:07)
[2017-04-21] MEDS: FLUTICASONE/SALMETEROL 250-50 DISKUS 14 DOSE INH SCH (10:08)
[2017-04-21 11:00] VITALS: BP 108/57
== END 2017-04-21 11:00 | disposition home or self-care (01) | DRG 292 ==
LOC: N.ED 13:42 → SUATTDRO 16:38 → N.EDINP 16:38 → N.5E 19:30
PROVIDERS: ADMIT Family Medicine; ATTEND Family Medicine

== ENCOUNTER 2017-07-21 07:57 | Observation (INO) ==
[2017-07-21] MEDS ORDERED: ASPIRIN 325 MG TABLET PO STA (08:31)
[2017-07-21 08:39] LABS: Basophils # 0.1 10*3/uL (0.0-0.2); Eosinophils # 0.4 10*3/uL (0.0-0.87); Eosinophils % 8.1 % (0.00-10.9); Hematocrit 35.8 VOL% (35.7-47.0); Immature Granulocytes % 0.4 %; Immature Granulocytes Absolute 0.02 #; Lymphocytes # 1.6 10*3/uL (1.4-4.0); Lymphocytes % 32.9 % (21.3-54.2); Mean Corpuscular HGB Conc 33.5 GM/DL (32-36); Mean Corpuscular Hemoglobin 31 PG (27-34); Mean Corpuscular Volume 92.3 FL (87-102); Mean Platelet Volume 11.2 FL (9.6-12.0); Monocytes # 0.3 10*3/uL (0.11-0.8); Monocytes % 5.9 % (1.7-12.7); Neutrophils # 2.6 10*3/uL (1.4-7.4); Neutrophils % 51.7 % (38.7-73.9); Platelet Count 189 T/CUMM (130-400); Red Blood Count 3.88 MC/CUMM (3.8-5.5); Red Cell Distribution Width 16.2 % (9.3-17.3); White Blood Count 4.9 T/CUMM (4-12)
[2017-07-21 08:52] LABS: Albumin 3.6 G/DL (3.4-5.0); Bilirubin,Total 1.3 MG/DL (0.2-1.0); Calcium 9.4 MG/DL (8.5-10.1); Osmolality,Calculated 284.8 MOS/KG (273-304); Total Protein 6.6 G/DL (6.4-8.3)
[2017-07-21 08:53] LABS: PT Patient Result 10.9 SECS; Partial Thromboplastin Time 25.6 SECS (0-40)
[2017-07-21 09:29] LABS: Apearance,Urine CLEAR (Clear); Bilirubin,Urine Negative (Negative); Blood, Urine Negative (Negative); Glucose,Urine (UA) Negative (Negative); Ketones,Urine Negative (Negative); Mucus,Urine Occasional /LPF (Occasional); Nitrite,Urine Negative (Negative); Protein,Urine Negative; RBC,Urine 1 /HPF (0-4); Urine Color Yellow (Yellow); Urine Specific Gravity 1.017 (1.001-1.035); Urine Urobilinogen < 2.0 EU/DL (0.2-1.0); WBC,Urine <1 /HPF (0-6)
[2017-07-21 12:18] LABS: Ammonia 31 UMOL/L (11-32)
[2017-07-21] MEDS ORDERED: DEXTROSE 50% 25 GM/50 ML VIAL IV PRN (14:21)
[2017-07-21] MEDS ORDERED: GLUCAGON 1 MG VIAL IM PRN (14:21)
[2017-07-21] MEDS ORDERED: DOCUSATE SODIUM 100 MG CAPSULE PO PRN (14:34)
[2017-07-21] MEDS ORDERED: LACTULOSE 20 GM/30 ML UDCUP PO PRN (14:34)
[2017-07-21] MEDS ORDERED: ACETAMINOPHEN 325 MG TABLET PO PRN (14:34)
[2017-07-21] MEDS ORDERED: ONDANSETRON 4 MG/2 ML VIAL IV PRN (14:34)
[2017-07-21] MEDS: NEBIVOLOL HCL 2.5 MG PO SCH (15:31)
[2017-07-21] MEDS: FUROSEMIDE 40 MG TABLET PO SCH (15:31)
[2017-07-21] MEDS ORDERED: ALBUTEROL/IPRATROPIUM 3 ML NEB RESP TX PRN (15:35)
[2017-07-21] MEDS: INSULIN LISPRO 100 UNIT/ML SUBCUT SCH ×2 (16:31→22:00)
[2017-07-21] MEDS: THEOPHYLLINE ER 300 MG TABLET PO SCH (16:31)
[2017-07-21] MEDS: SODIUM CHLORIDE 0.9% 1,000 ML IV SCH ×2 (16:44→17:17)
[2017-07-21 17:44] LABS: Hepatitis A Ab IgM Quant 0.19 Index; Hepatitis A Ab IgM Result Negative (Negative); Hepatitis B Core IgM Result Negative (Negative); Hepatitis B Surface Ag Quant < 0.10 Index; Hepatitis B Surface Ag Result Negative (Negative); Hepatitis C Virus Ab Quant 0.14 Index; Hepatitis C Virus Ab Result Negative (Negative)
[2017-07-21] MEDS ORDERED: MONTELUKAST 10 MG TABLET PO SCH (21:00)
[2017-07-21] MEDS: FLUTICASONE/SALMETEROL 250-50 DISKUS 14 DOSE INH SCH (21:08)
[2017-07-22 03:51] LABS: Basophils # 0.1 10*3/uL (0.0-0.2); Basophils % 1.1 % (0.0-0.8); Eosinophils # 0.4 10*3/uL (0.0-0.87); Eosinophils % 7.4 % (0.00-10.9); Hematocrit 35.6 VOL% (35.7-47.0); Hemoglobin 12.2 GM/DL (12.0-16.0); Immature Granulocytes % 0.2 %; Immature Granulocytes Absolute 0.01 #; Lymphocytes # 2.2 10*3/uL (1.4-4.0); Lymphocytes % 40.3 % (21.3-54.2); Mean Corpuscular HGB Conc 34.3 GM/DL (32-36); Mean Corpuscular Hemoglobin 31 PG (27-34); Mean Corpuscular Volume 90.6 FL (87-102); Mean Platelet Volume 11.8 FL (9.6-12.0); Monocytes # 0.4 10*3/uL (0.11-0.8); Monocytes % 7.4 % (1.7-12.7); Neutrophils # 2.4 10*3/uL (1.4-7.4); Neutrophils % 43.6 % (38.7-73.9); Platelet Count 188 T/CUMM (130-400); Red Blood Count 3.93 MC/CUMM (3.8-5.5); Red Cell Distribution Width 16.6 % (9.3-17.3); White Blood Count 5.5 T/CUMM (4-12)
[2017-07-22 04:19] LABS: Albumin 3.6 G/DL (3.4-5.0); Bilirubin,Total 1.5 MG/DL (0.2-1.0); Calcium 9.7 MG/DL (8.5-10.1); Risk Ratio 1.4; Total Protein 6.2 G/DL (6.4-8.3); VLDL CHOLESTEROL 8.4 MG/DL
[2017-07-22] MEDS: INSULIN LISPRO 100 UNIT/ML SUBCUT SCH ×2 (08:17→12:01)
[2017-07-22] MEDS ORDERED: PANTOPRAZOLE 40 MG TABLET PO SCH (09:00)
[2017-07-22] MEDS ORDERED: ASPIRIN EC 81 MG TABLET PO SCH (09:00)
[2017-07-22] MEDS ORDERED: ESCITALOPRAM 10 MG TABLET PO SCH (09:00)
[2017-07-22] MEDS: THEOPHYLLINE ER 300 MG TABLET PO SCH (09:03)
[2017-07-22] MEDS: NEBIVOLOL HCL 2.5 MG PO SCH (09:03)
[2017-07-22] MEDS: FLUTICASONE/SALMETEROL 250-50 DISKUS 14 DOSE INH SCH (09:04)
[2017-07-22] MEDS: FUROSEMIDE 40 MG TABLET PO SCH (09:04)
[2017-07-22] MEDS ORDERED: DIAZEPAM 5 MG TABLET PO ONE (09:16)
[2017-07-22 12:20] VITALS: BP 135/70
== END 2017-07-22 13:42 | disposition home or self-care (01) ==
LOC: EDUNIT# → N.EDINP 07:57 → N.ED 07:57 → N.5E 13:35
PROVIDERS: ADMIT Internal Medicine; ATTEND Internal Medicine

== ENCOUNTER 2018-12-07 13:19 | Observation (INO) ==
[2018-12-07 13:51] LABS: Basophils # 0.1 10*3/uL (0.0-0.2); Basophils % 0.6 % (0.0-0.8); Eosinophils # 0.1 10*3/uL (0.0-0.87); Eosinophils % 0.9 % (0.00-10.9); Hematocrit 39.8 VOL% (35.7-47.0); Hemoglobin 13.2 GM/DL (12.0-16.0); Immature Granulocytes % 0.8 %; Immature Granulocytes Absolute 0.08 #; Lymphocytes # 1.1 10*3/uL (1.4-4.0); Lymphocytes % 10.6 % (21.3-54.2); Mean Corpuscular HGB Conc 33.2 GM/DL (32-36); Mean Corpuscular Volume 93.9 FL (87-102); Mean Platelet Volume 10.4 FL (9.6-12.0); Monocytes % 3.8 % (1.7-12.7); Neutrophils % 83.3 % (38.7-73.9); Platelet Count 230 T/CUMM (130-400); Red Blood Count 4.24 MC/CUMM (3.8-5.5); Red Cell Distribution Width 14.8 % (9.3-17.3); White Blood Count 10.3 T/CUMM (4-12)
[2018-12-07 13:59] LABS: Apearance,Urine CLEAR (Clear); Bilirubin,Urine Negative (Negative); Blood, Urine Negative (Negative); Glucose,Urine (UA) Negative (Negative); Ketones,Urine Negative (Negative); Nitrite,Urine Negative (Negative); Protein,Urine Negative; RBC,Urine 1 /HPF (0-4); Squamous Epithelial Cell,Urine Occasional /HPF (0-10); Urine Color Yellow (Yellow); Urine Specific Gravity 1.019 (1.001-1.035); Urine Urobilinogen < 2.0 EU/DL (0.2-1.0); WBC,Urine <1 /HPF (0-6)
[2018-12-07 14:03] LABS: INR 0.9; Partial Thromboplastin Time 24.5 SECS (20.8-36.0)
[2018-12-07 14:17] LABS: Albumin 3.7 G/DL (3.4-5.0); Bilirubin,Total 0.8 MG/DL (0.2-1.0); Calcium 10.1 MG/DL (8.5-10.1); Osmolality,Calculated 291.8 MOS/KG (273-304); Total Protein 6.6 G/DL (6.4-8.3)
[2018-12-07 15:06] LABS: Barbiturates Screen,Urine Negative (Negative); Benzodiazepines Screen,Urine Negative (Negative); Cannabinoid Screen,Urine Negative (Negative); Opiate Screen,Urine Negative (Negative); Phencyclidine Screen,Urine Negative (Negative)
[2018-12-07] MEDS ORDERED: ALUM/MAG/SIMETH/LIDO VISC 1:1 30 ML BOTTLE PO STA (18:02)
[2018-12-07] MEDS ORDERED: ONDANSETRON 4 MG/2 ML VIAL IV PRN (18:07)
[2018-12-07] MEDS ORDERED: ACETAMINOPHEN 325 MG TABLET PO PRN (18:07)
[2018-12-07] MEDS ORDERED: ALUM/MAG/SIMETH/LIDO VISC 1:1 30 ML BOTTLE PO PRN (18:09)
[2018-12-07] MEDS ORDERED: DEXTROSE 10% 250 ML BAG IV PRN (18:18)
[2018-12-07] MEDS ORDERED: GLUCAGON 1 MG VIAL IM PRN (18:18)
[2018-12-07] MEDS: INSULIN LISPRO 100 UNIT/ML SUBCUT SCH (20:32)
[2018-12-08 06:16] LABS: Basophils % 0.3 % (0.0-0.8); Eosinophils # 0.1 10*3/uL (0.0-0.87); Eosinophils % 0.8 % (0.00-10.9); Hematocrit 34.5 VOL% (35.7-47.0); Hemoglobin 11.2 GM/DL (12.0-16.0); Immature Granulocytes % 0.7 %; Immature Granulocytes Absolute 0.05 #; Lymphocytes # 1.4 10*3/uL (1.4-4.0); Lymphocytes % 18.2 % (21.3-54.2); Mean Corpuscular HGB Conc 32.5 GM/DL (32-36); Mean Corpuscular Volume 93.2 FL (87-102); Mean Platelet Volume 10.4 FL (9.6-12.0); Monocytes % 9.4 % (1.7-12.7); Neutrophils % 70.6 % (38.7-73.9); Platelet Count 217 T/CUMM (130-400); Red Cell Distribution Width 14.9 % (9.3-17.3); White Blood Count 7.7 T/CUMM (4-12)
[2018-12-08 06:35] LABS: Troponin I < 0.015 NG/ML (0.00-0.045)
[2018-12-08 06:42] LABS: Calcium 9.1 MG/DL (8.5-10.1); Osmolality,Calculated 294.8 MOS/KG (273-304); Risk Ratio 1.64; Thyroid Stimulating Hormone 0.406 uIU/ml (0.358-3.74)
[2018-12-08] MEDS: ALBUTEROL/IPRATROPIUM 3 ML NEB RESP TX SCH ×2 (07:36→07:38)
[2018-12-08] MEDS: INSULIN LISPRO 100 UNIT/ML SUBCUT SCH ×2 (07:37→12:48)
[2018-12-08] MEDS ORDERED: ENOXAPARIN 40 MG/0.4 ML SYRINGE SUBCUT SCH (09:00)
[2018-12-08] MEDS ORDERED: PANTOPRAZOLE 40 MG TABLET PO SCH (09:00)
[2018-12-08 12:19] VITALS: BP 138/74
[2018-12-08] MEDS ORDERED: ALBUTEROL/IPRATROPIUM 3 ML NEB RESP TX SCH (22:25)
== END 2018-12-08 13:30 | disposition home or self-care (01) ==
LOC: N.ED 13:19 → N.EDINP 13:19 → N.5E 20:28
PROVIDERS: ADMIT Internal Medicine; ATTEND Internal Medicine

== ENCOUNTER 2019-04-15 17:05 | Inpatient (IN) ==
[2019-04-15 17:56] LABS: Basophils % 0.2 % (0.0-0.8); Eosinophils % 0.3 % (0.00-10.9); Hematocrit 34.6 VOL% (35.7-47.0); Hemoglobin 11.2 GM/DL (12.0-16.0); Immature Granulocytes % 0.6 %; Immature Granulocytes Absolute 0.07 #; Lymphocytes # 0.4 10*3/uL (1.4-4.0); Mean Corpuscular HGB Conc 32.4 GM/DL (32-36); Mean Corpuscular Volume 92.5 FL (87-102); Mean Platelet Volume 10.5 FL (9.6-12.0); Monocytes % 2.1 % (1.7-12.7); Neutrophils % 93.8 % (38.7-73.9); Platelet Count 178 T/CUMM (130-400); Red Blood Count 3.74 MC/CUMM (3.8-5.5); White Blood Count 12.1 T/CUMM (4-12)
[2019-04-15 18:14] LABS: Bilirubin,Total 0.6 MG/DL (0.2-1.0); Calcium 8.4 MG/DL (8.5-10.1); Total Protein 6.3 G/DL (6.4-8.3)
[2019-04-15 18:34] LABS: Lymphocytes 2 % (20-55); Segmented Neutrophils 98 % (50-85); Total Cells Counted 100
[2019-04-15 18:35] LABS: Ovalocytes Few; Platelet Estimate Adequate
[2019-04-15 18:36] LABS: Anisocytosis Slight
[2019-04-15] MEDS ORDERED: SODIUM CHLORIDE 0.9% 1,000 ML IV STA (19:42)
[2019-04-15 20:45] LABS: Apearance,Urine CLEAR (Clear); Bilirubin,Urine Negative (Negative); Blood, Urine Negative (Negative); Glucose,Urine (UA) >=500 mg/dL (Negative); Ketones,Urine Negative (Negative); Nitrite,Urine Negative (Negative); Protein,Urine Negative; RBC,Urine 1 /HPF (0-4); Squamous Epithelial Cell,Urine Occasional /HPF (0-10); Urine Color Yellow (Yellow); Urine Specific Gravity 1.028 (1.001-1.035); WBC,Urine 1 /HPF (0-6)
[2019-04-15] MEDS ORDERED: VANCOMYCIN INJ 1,000 MG in SODIUM CHLORIDE 0.9% 250 ML IV STA (21:49)
[2019-04-15] MEDS ORDERED: cefTRIAXone 1,000 MG in SODIUM CHLORIDE 0.9% 100 ML IV STA (21:49)
[2019-04-15] MEDS ORDERED: GLUCAGON 1 MG VIAL IM PRN (21:55)
[2019-04-15] MEDS ORDERED: ZALEPLON 5 MG CAPSULE PO PRN (21:55)
[2019-04-15] MEDS ORDERED: ACETAMINOPHEN 325 MG TABLET PO PRN (21:55)
[2019-04-15] MEDS ORDERED: hydrALAZINE 20 MG/1 ML VIAL IV PRN (21:59)
[2019-04-15] MEDS ORDERED: tiZANidine 4 MG TABLET PO PRN (22:00)
[2019-04-15] MEDS ORDERED: LORATADINE 10 MG TABLET PO PRN (22:00)
[2019-04-15] MEDS ORDERED: DEXTROSE 10% 250 ML BAG IV PRN (22:02)
[2019-04-15] MEDS ORDERED: oxyCODONE/ACETAMINOPHEN 5-325 MG TABLET PO PRN (22:29)
[2019-04-16] MEDS: ALBUTEROL/IPRATROPIUM 3 ML NEB RESP TX SCH ×6 (01:10→23:18)
[2019-04-16] MEDS: ENOXAPARIN 40 MG/0.4 ML SYRINGE SUBCUT SCH ×2 (01:57→22:13)
[2019-04-16] MEDS: OSELTAMIVIR 75 MG CAPSULE PO SCH ×3 (01:58→21:11)
[2019-04-16] MEDS: ATORVASTATIN 40 MG TABLET PO SCH ×2 (01:58→21:11)
[2019-04-16] MEDS: SACUBITRIL/VALSARTAN 49-51 MG TABLET PO SCH ×3 (01:58→21:11)
[2019-04-16] MEDS: AZITHROMYCIN INJ 500 MG in SODIUM CHLORIDE 0.9% 250 ML IV SCH ×2 (01:58→22:44)
[2019-04-16 04:43] LABS: Basophils % 0.1 % (0.0-0.8); Hematocrit 32.1 VOL% (35.7-47.0); Hemoglobin 10.4 GM/DL (12.0-16.0); Immature Granulocytes % 0.6 %; Immature Granulocytes Absolute 0.05 #; Lymphocytes # 0.6 10*3/uL (1.4-4.0); Lymphocytes % 7.4 % (21.3-54.2); Mean Corpuscular HGB Conc 32.4 GM/DL (32-36); Mean Corpuscular Volume 93.3 FL (87-102); Mean Platelet Volume 10.7 FL (9.6-12.0); Monocytes % 2.6 % (1.7-12.7); Neutrophils % 89.3 % (38.7-73.9); Platelet Count 168 T/CUMM (130-400); Red Blood Count 3.44 MC/CUMM (3.8-5.5); Red Cell Distribution Width 14.9 % (9.3-17.3)
[2019-04-16 05:19] LABS: Albumin 2.8 G/DL (3.4-5.0); Bilirubin,Total 0.4 MG/DL (0.2-1.0); Calcium 8.2 MG/DL (8.5-10.1); Osmolality,Calculated 283.3 MOS/KG (273-304)
[2019-04-16] MEDS: DOCUSATE SODIUM 100 MG CAPSULE PO PRN ×2 (05:55→21:11)
[2019-04-16] MEDS: ASPIRIN 325 MG TABLET PO SCH (08:27)
[2019-04-16] MEDS: FUROSEMIDE 40 MG TABLET PO SCH (08:27)
[2019-04-16] MEDS: INSULIN LISPRO 100 UNIT/ML SUBCUT SCH ×4 (08:27→21:15)
[2019-04-16] MEDS: FLUTICASONE 50 MCG NASAL SPRAY 16 GM BOTTLE BOTH NARES SCH (08:28)
[2019-04-16] MEDS ORDERED: PANTOPRAZOLE 40 MG TABLET PO SCH (09:00)
[2019-04-16] MEDS: guaiFENesin/DM ER 600-30 MG TABLET PO PRN ×2 (10:08→17:00)
[2019-04-16] MEDS ORDERED: MONTELUKAST 10 MG TABLET PO PRN (10:26)
[2019-04-16] MEDS: ONDANSETRON 4 MG/2 ML VIAL IV PRN (10:47)
[2019-04-16] MEDS: ALUMINUM/MAGNES/SIMETH MAX STR 30 ML UDCUP PO PRN ×2 (10:47→22:12)
[2019-04-16] MEDS: ESCITALOPRAM 10 MG TABLET PO SCH (10:48)
[2019-04-16] MEDS: NEBIVOLOL 5 MG TABLET PO SCH (10:48)
[2019-04-16] MEDS ORDERED: POTASSIUM CHLORIDE 20 MEQ TABLET PO ONE (14:42)
[2019-04-16] MEDS: predniSONE 20 MG TABLET PO SCH (16:05)
[2019-04-16] MEDS: MONTELUKAST 10 MG TABLET PO SCH ×2 (16:06→21:11)
[2019-04-16] MEDS: BUDESONIDE 0.5 MG/2 ML NEB RESP TX SCH (18:41)
[2019-04-16] MEDS: ARFORMOTEROL 15 MCG/2 ML NEB RESP TX SCH (18:41)
[2019-04-16] MEDS ORDERED: INSULIN GLARGINE 100 UNIT/ML SUBCUT SCH (21:00)
[2019-04-16] MEDS: PANTOPRAZOLE 40 MG TABLET PO SCH (21:11)
[2019-04-16] MEDS: cefTRIAXone 1,000 MG in SODIUM CHLORIDE 0.9% 100 ML IV SCH (22:13)
[2019-04-17] MEDS: ALBUTEROL/IPRATROPIUM 3 ML NEB RESP TX SCH ×5 (03:18→21:03)
[2019-04-17 05:04] LABS: Hematocrit 33.1 VOL% (35.7-47.0); Hemoglobin 10.9 GM/DL (12.0-16.0); Immature Granulocytes % 0.5 %; Immature Granulocytes Absolute 0.02 #; Lymphocytes # 0.7 10*3/uL (1.4-4.0); Lymphocytes % 15.5 % (21.3-54.2); Mean Corpuscular HGB Conc 32.9 GM/DL (32-36); Mean Corpuscular Volume 92.2 FL (87-102); Mean Platelet Volume 11.3 FL (9.6-12.0); Monocytes % 4.9 % (1.7-12.7); Neutrophils % 79.1 % (38.7-73.9); Platelet Count 182 T/CUMM (130-400); Red Blood Count 3.59 MC/CUMM (3.8-5.5); White Blood Count 4.3 T/CUMM (4-12)
[2019-04-17 05:28] LABS: Calcium 8.6 MG/DL (8.5-10.1); Osmolality,Calculated 286.1 MOS/KG (273-304)
[2019-04-17 05:52] LABS: Band Neutrophils 5 % (0-10); Hypochromasia Slight; Lymphocytes 9 % (20-55); Segmented Neutrophils 82 % (50-85); Total Cells Counted 100
[2019-04-17 05:53] LABS: Microcytosis Slight; Platelet Estimate Adequate
[2019-04-17] MEDS: BUDESONIDE 0.5 MG/2 ML NEB RESP TX SCH ×2 (06:55→21:03)
[2019-04-17] MEDS: ARFORMOTEROL 15 MCG/2 ML NEB RESP TX SCH ×2 (06:55→21:03)
[2019-04-17] MEDS: INSULIN LISPRO 100 UNIT/ML SUBCUT SCH ×4 (07:39→21:29)
[2019-04-17] MEDS: ESCITALOPRAM 10 MG TABLET PO SCH (08:45)
[2019-04-17] MEDS: guaiFENesin/DM ER 600-30 MG TABLET PO PRN (08:45)
[2019-04-17] MEDS: ASPIRIN 325 MG TABLET PO SCH (08:45)
[2019-04-17] MEDS: SACUBITRIL/VALSARTAN 49-51 MG TABLET PO SCH ×2 (08:45→21:27)
[2019-04-17] MEDS: POTASSIUM CHLORIDE 20 MEQ TABLET PO SCH (08:45)
[2019-04-17] MEDS: NEBIVOLOL 5 MG TABLET PO SCH (08:45)
[2019-04-17] MEDS: OSELTAMIVIR 75 MG CAPSULE PO SCH ×2 (08:46→21:28)
[2019-04-17] MEDS: predniSONE 20 MG TABLET PO SCH ×2 (08:46→21:28)
[2019-04-17] MEDS: PANTOPRAZOLE 40 MG TABLET PO SCH ×2 (08:46→21:28)
[2019-04-17] MEDS: ALUMINUM/MAGNES/SIMETH MAX STR 30 ML UDCUP PO PRN (08:47)
[2019-04-17] MEDS: MONTELUKAST 10 MG TABLET PO SCH ×2 (08:47→21:27)
[2019-04-17] MEDS: FLUTICASONE 50 MCG NASAL SPRAY 16 GM BOTTLE BOTH NARES SCH (08:47)
[2019-04-17] MEDS: FUROSEMIDE 40 MG TABLET PO SCH (08:47)
[2019-04-17] MEDS ORDERED: MAGNESIUM HYDROXIDE SUSP 30 ML UDCUP PO ONE (14:21)
[2019-04-17] MEDS ORDERED: MAGNESIUM HYDROXIDE SUSP 30 ML UDCUP PO PRN (14:21)
[2019-04-17] MEDS: DOCUSATE SODIUM 100 MG CAPSULE PO SCH ×2 (14:53→21:27)
[2019-04-17] MEDS: POLYETHYLENE GLYCOL POWDER 17 GM PACK PO SCH ×2 (14:53→21:29)
[2019-04-17] MEDS: CALCIUM CARBONATE CHEW 500 MG TABLET PO PRN (16:59)
[2019-04-17] MEDS: ATORVASTATIN 40 MG TABLET PO SCH (21:27)
[2019-04-17] MEDS: INSULIN GLARGINE 100 UNIT/ML SUBCUT SCH (21:29)
[2019-04-17] MEDS: cefTRIAXone 1,000 MG in SODIUM CHLORIDE 0.9% 100 ML IV SCH (23:29)
[2019-04-17] MEDS: ENOXAPARIN 40 MG/0.4 ML SYRINGE SUBCUT SCH (23:37)
[2019-04-18] MEDS: AZITHROMYCIN INJ 500 MG in SODIUM CHLORIDE 0.9% 250 ML IV SCH ×2 (00:26→23:35)
[2019-04-18] MEDS: ALBUTEROL/IPRATROPIUM 3 ML NEB RESP TX SCH ×6 (02:24→20:36)
[2019-04-18 04:41] LABS: Basophils % 0.2 % (0.0-0.8); Hematocrit 33.8 VOL% (35.7-47.0); Hemoglobin 10.9 GM/DL (12.0-16.0); Immature Granulocytes Absolute 0.06 #; Lymphocytes # 0.8 10*3/uL (1.4-4.0); Lymphocytes % 13.8 % (21.3-54.2); Mean Corpuscular HGB Conc 32.2 GM/DL (32-36); Mean Corpuscular Volume 92.9 FL (87-102); Platelet Count 185 T/CUMM (130-400); Red Blood Count 3.64 MC/CUMM (3.8-5.5)
[2019-04-18 05:05] LABS: Calcium 9.4 MG/DL (8.5-10.1); Osmolality,Calculated 290.3 MOS/KG (273-304)
[2019-04-18] MEDS: ASPIRIN 325 MG TABLET PO SCH (08:08)
[2019-04-18] MEDS: ESCITALOPRAM 10 MG TABLET PO SCH (08:08)
[2019-04-18] MEDS: MONTELUKAST 10 MG TABLET PO SCH ×2 (08:08→21:18)
[2019-04-18] MEDS: OSELTAMIVIR 75 MG CAPSULE PO SCH ×2 (08:08→21:19)
[2019-04-18] MEDS: SACUBITRIL/VALSARTAN 49-51 MG TABLET PO SCH ×2 (08:08→21:19)
[2019-04-18] MEDS: predniSONE 20 MG TABLET PO SCH ×2 (08:08→21:18)
[2019-04-18] MEDS: POTASSIUM CHLORIDE 20 MEQ TABLET PO SCH (08:09)
[2019-04-18] MEDS: FUROSEMIDE 40 MG TABLET PO SCH (08:09)
[2019-04-18] MEDS: DOCUSATE SODIUM 100 MG CAPSULE PO SCH ×2 (08:09→21:18)
[2019-04-18] MEDS: CALCIUM CARBONATE CHEW 500 MG TABLET PO PRN (08:09)
[2019-04-18] MEDS: PANTOPRAZOLE 40 MG TABLET PO SCH ×2 (08:09→21:18)
[2019-04-18] MEDS: POLYETHYLENE GLYCOL POWDER 17 GM PACK PO SCH ×2 (08:09→21:19)
[2019-04-18] MEDS: NEBIVOLOL 5 MG TABLET PO SCH (08:09)
[2019-04-18] MEDS: BUDESONIDE 0.5 MG/2 ML NEB RESP TX SCH ×2 (08:11→20:36)
[2019-04-18] MEDS: ARFORMOTEROL 15 MCG/2 ML NEB RESP TX SCH ×2 (08:11→20:36)
[2019-04-18] MEDS: INSULIN LISPRO 100 UNIT/ML SUBCUT SCH ×4 (08:24→21:19)
[2019-04-18] MEDS: FLUTICASONE 50 MCG NASAL SPRAY 16 GM BOTTLE BOTH NARES SCH (09:14)
[2019-04-18] MEDS: ATORVASTATIN 40 MG TABLET PO SCH (21:18)
[2019-04-18] MEDS: INSULIN GLARGINE 100 UNIT/ML SUBCUT SCH (21:19)
[2019-04-18] MEDS: cefTRIAXone 1,000 MG in SODIUM CHLORIDE 0.9% 100 ML IV SCH (22:35)
[2019-04-18] MEDS: ENOXAPARIN 40 MG/0.4 ML SYRINGE SUBCUT SCH (22:36)
[2019-04-19] MEDS: ALBUTEROL/IPRATROPIUM 3 ML NEB RESP TX SCH ×5 (00:20→11:20)
[2019-04-19 06:28] LABS: Basophils % 0.1 % (0.0-0.8); Hematocrit 34.6 VOL% (35.7-47.0); Hemoglobin 11.3 GM/DL (12.0-16.0); Immature Granulocytes % 1.1 %; Immature Granulocytes Absolute 0.08 #; Lymphocytes # 1.2 10*3/uL (1.4-4.0); Lymphocytes % 16.4 % (21.3-54.2); Mean Corpuscular HGB Conc 32.7 GM/DL (32-36); Mean Corpuscular Volume 91.5 FL (87-102); Mean Platelet Volume 10.3 FL (9.6-12.0); Monocytes % 5.2 % (1.7-12.7); Neutrophils % 77.2 % (38.7-73.9); Platelet Count 195 T/CUMM (130-400); Red Blood Count 3.78 MC/CUMM (3.8-5.5); Red Cell Distribution Width 14.9 % (9.3-17.3); White Blood Count 7.1 T/CUMM (4-12)
[2019-04-19 06:47] LABS: Calcium 9.7 MG/DL (8.5-10.1); Osmolality,Calculated 285.5 MOS/KG (273-304)
[2019-04-19] MEDS: ARFORMOTEROL 15 MCG/2 ML NEB RESP TX SCH (07:45)
[2019-04-19] MEDS: BUDESONIDE 0.5 MG/2 ML NEB RESP TX SCH (07:45)
[2019-04-19] MEDS: INSULIN LISPRO 100 UNIT/ML SUBCUT SCH ×2 (08:22→12:03)
[2019-04-19] MEDS: ONDANSETRON 4 MG/2 ML VIAL IV PRN (08:54)
[2019-04-19] MEDS: CALCIUM CARBONATE CHEW 500 MG TABLET PO PRN (08:55)
[2019-04-19] MEDS: POLYETHYLENE GLYCOL POWDER 17 GM PACK PO SCH (08:55)
[2019-04-19] MEDS: POTASSIUM CHLORIDE 20 MEQ TABLET PO SCH (08:56)
[2019-04-19] MEDS: MONTELUKAST 10 MG TABLET PO SCH (08:56)
[2019-04-19] MEDS: ASPIRIN 325 MG TABLET PO SCH (08:56)
[2019-04-19] MEDS: SACUBITRIL/VALSARTAN 49-51 MG TABLET PO SCH (08:56)
[2019-04-19] MEDS: ESCITALOPRAM 10 MG TABLET PO SCH (08:56)
[2019-04-19] MEDS: DOCUSATE SODIUM 100 MG CAPSULE PO SCH (08:56)
[2019-04-19] MEDS: PANTOPRAZOLE 40 MG TABLET PO SCH (08:56)
[2019-04-19] MEDS: OSELTAMIVIR 75 MG CAPSULE PO SCH (08:56)
[2019-04-19] MEDS: NEBIVOLOL 5 MG TABLET PO SCH (08:56)
[2019-04-19] MEDS: predniSONE 20 MG TABLET PO SCH (08:57)
[2019-04-19] MEDS: FUROSEMIDE 40 MG TABLET PO SCH (08:57)
[2019-04-19] MEDS: FLUTICASONE 50 MCG NASAL SPRAY 16 GM BOTTLE BOTH NARES SCH (09:02)
[2019-04-19 12:24] VITALS: BP 152/77
== END 2019-04-19 16:14 | disposition home or self-care (01) | DRG 194 ==
LOC: N.EDINP 17:05 → N.ED 17:05 → N.5E 22:25
PROVIDERS: ADMIT Hospitalist; ATTEND Hospitalist